=== PATIENT | female | born 1970 | race Caucasian/White ===

== ENCOUNTER 2020-05-13 21:41 | Emergency (ER) | payer BC, SELFPAY ==
[2020-05-13] VITALS (8 sets, daily range): BP systolic 104–160; BP diastolic 74–115; PULSE 74–87; RESP 13–26; TEMP 37; O2SAT 94–98
--- NOTE | 2020-05-13 21:57 | ED.GENADUL_ITS ---
Discharge Plan Disposition Patient Disposition: HOME Condition: Good Discharge Details Chief Complaint: GenMedical Clinical Impression: Migraine headache Primary Care Provider: None,None ED Provider: Alan Means Home Meds and New Rx's Prescriptions: Continued metoprolol tartrate 100 MG tablet 300 mg PO DAILY RF: 0 hydrochlorothiazide 50 MG tablet 50 mg PO DAILY RF: 0 lisinopril 20 MG tablet 20 mg PO DAILY RF: 0 amlodipine 2.5 MG tablet 2.5 mg PO DAILY RF: 0 ciprofloxacin-hydrocortisone [Cipro HC] 10 ML drops,suspension 10 ml .Route .DM PRNRF: 0 Discharge Instructions Instructions: Acute Headache (ED) Additional Instructions: At this time your headache seems to be associated with a migraine variant. With its complete resolution and your blood pressure normalizing feel that you can be discharged. If you notice any worsening of your symptoms, or any new symptoms such as vomiting, diarrhea, fever, chills, shortness of breath, chest pain, numbness, weakness, or fainting , please return immediately to the emergency department for reevaluation. Please follow up with your primary care provider as soon as possible for reassessment and reevaluation. As always, it was a pleasure participating in your medical care today. Medical Decision Making 41-year-old female with a past medical history of hypertension, as well as migraines presents today for 1 to 2 days of frontal headaches. She states that it feels notably similar to her chronic headaches which sometimes are independent of her blood pressure and sometimes associated with it. She describes the pain as a pounding pressure-like sensation in the front of her head radiating to the temporal region. She also has some radiation to the back of her head towards her neck. She denies any neck stiffness fever or chills. The patient denies any headache red flags of worst headache of life, thunderclap headache, neck pain, fever, chills, concerning family history of polycystic kidn ey disease, Marfan syndrome, Enzo-Danlos syndrome, abdominal aortic aneurysm, aortic dissection, or intracranial aneurysm. She did notice that her blood pressure was elevated the other day, but it is not much higher than normal. Patient does admit to an outpatient CAT scan 1 year ago which was unremarkable. No tumor or mass at that time. No other complaints. Headache is made worse with bright lights and loud noises. She has taken Benadryl, caffeine, ibuprofen, but none of this is helped her symptoms. Physical exam demonstrates no neurologic deficits, no clinical evidence of meningitis. Signs and symptoms appear inconsistent with aneurysm/ meningitis/bleed. no focal neurologic deficits to suggest intracranial abnormality. Will give a migraine cocktail, rehydrate monitor closely and reassess. 11 PM Patient has complete resolution of her headache after migraine cocktail. She feels well and requesting discharge. Repeat neurologic exam shows no neurologic deficits. No indication for imaging at this time. Blood pressure has normalized completely. Suspect that her headache was the cause of her pressure. Patient will be discharged home. Discussed red flags which to return. I have extensively reviewed the treatment plan and discharge instructions with the patient. I have addressed all patient concerns at this time. The patient was made aware of what symptoms to monitor for that would warrant a return to the emergency department. Discussed the plan with the patient, they demonstrate verbal understanding and agreement with our assessment and plan at this time. EKG 22: 03 Rate 75, intervals normal, sinus rhythm, no significant ST elevations or depressions, no T wave inversions. No evidence of STEMI or right heart strain. HPI General Date/Time Provider Initiated Documentation: 05/13/20 21:50 . HPI Narrative: 41-year-old female with a past medical history of hypertension, as well as migraines presents today for 1 to 2 days of frontal headaches. She states that it feels notably similar to her chronic headaches which sometimes ar e independent of her blood pressure and sometimes associated with it. She describes the pain as a pounding pressure-like sensation in the front of her head radiating to the temporal region. She also has some radiation to the back of her head towards her neck. She denies any neck stiffness fever or chills. The patient denies any headache red flags of worst headache of life, thunderclap headache, neck pain, fever, chills, concerning family history of polycystic kidney disease, Marfan syndrome, Enzo-Danlos syndrome, abdominal aortic aneurysm, aortic dissection, or intracranial aneurysm. She did notice that her blood pressure was elevated the other day, but it is not much higher than normal. Patient does admit to an outpatient CAT scan 1 year ago which was unremarkable. No tumor or mass at that time. No other complaints. Headache is made worse with bright lights and loud noises. She has taken Benadryl, caffeine, ibuprofen, but none of this is helped her symptoms. Related Data Home Medications Medication Instructions Recorded Confirmed amlodipine 2.5 mg PO DAILY 06/26/18 06/26/18 ciprofloxacin-hydrocortisone 10 ml .ROUTE .DM PRN btl 06/26/18 [Cipro HC] hydrochlorothiazide 50 mg PO DAILY 06/26/18 06/26/18 lisinopril 20 mg PO DAILY 06/26/18 06/26/18 metoprolol tartrate 300 mg PO DAILY 06/26/18 06/26/18 Previous Rx's Medication Instructions Recorded ciprofloxacin-hydrocortisone 10 ml .ROUTE .DM PRN btl 06/26/18 [Cipro HC] Allergies Allergy/AdvReac Type Severity Reaction Status Date / Time cephalexin monohydrate Allergy Severe Anaphylaxsi Unverified 05/13/20 21:52 [From Keflex] s Latex, Natural Rubber Allergy Skin Rash Unverified 05/13/20 21:52 Penicillins Allergy Nausea Unverified 05/13/20 21:52 meperidine HCl [From Demerol] AdvReac vomits Unverified 05/13/20 21:52 morphine AdvReac vomits Unverified 05/13/20 21:52 General Stated Complaint: GenMedical MAUDE: 3 Review of Systems All systems reviewed & are unremarkable except as noted in HPI and below PFSH Social History Smoking/Tobacco Use Status: Never Drug use: Never Do you feel safe at home: Yes Do you feel safe in your relationship?: Yes Exam Narrative Exam Narrative: 1.Const: Well-nourished, Well-developed, appearing stated age 2.Eyes: PERRL, no conjunctival injection, and symmetrical lids. 3.ENT: Atraumatic external nose and ears. Moist MM. Neck: Symmetric, trachea midline, No thyromegaly. Patient demonstrates good movement of cervical neck. There is no nuchal rigidity, no nuchal tenderness. Patient is able to flex the neck without any difficulty or significant pain. Negative Kernig's and Brudzinski sign. 4.CVS: +S1/S2, No murmurs or gallops. Peripheral pulses 2+ and equal in all extremities. Brisk capillary refill in all extremities. 5.RESP: Unlabored respiratory effort. Clear to auscultation bilaterally. No wheezes rales or rhonchi 6.GI: Soft, Nontender/Nondistended, No hepatosplenomegaly. No guarding or rebound. 7.MSK: Normocephalic/Atraumatic, Extremities w/o deformity or ttp No cyanosis or clubbing, Normal movement of all extremities 8.Skin: Warm, Dry. No rashes or lesions. 9.Neuro: business continuity planner II-XII grossly intact. Sensation grossly intact, no focal neurologic deficits. All 6 cardinal planes of vision are fully intact. No evidence of rotatory or vertical nystagmus. The patient demonstrated a normal pkehot-cyio-evnldv, good dexterity. There was no evidence of dysdiadochokinesia. Patient was able to ambulate without difficulty. There was no wide-based gait. Romberg testing was normal. Uvfq-qi-uxjo testing was normal. Sensation was intact bilaterally as well as muscle strength bilaterally for all extremities. Patient was able to verbalize butter cup with no slurring, or miss pronunciation. 10.Psych: (AAO) x3. Appropriate mood and affect Course Vital Signs Vital signs: Vital Signs Temperature 37.0 C 05/13/20 21:49 Pulse 86 05/13/20 21:49 Respiratory Rate 16 05/13/20 21:49 Blood Pressure 160/115 H 05/13/20 21:49 Pulse Oximetry 98 05/13/20 21:49 Temperature 37.0 C 05/13/20 21:49 Temperature Source Skin 05/13/20 21:49 Pulse 86 05/13/20 21:49 Respiratory Rate 16 05/13/20 21:49 Respiratory Effort Non-Labored 05/13/20 21:52 Blood Pressure 160/115 H 05/13/20 21:49 Blood Pressure Position Sitting 05/13/20 21:49 Pulse Oximetry 98 05/13/20 21:49 Oxygen Delivery Method Room Air 05/13/20 21:49 Oxygen Flow Rate 0 05/13/20 21:49 Pain Level 8 05/13/20 21:49
[2020-05-13] MEDS: diphenhydrAMINE 50 MG/ML VIAL 25 MG IVP (22:27)
[2020-05-13] MEDS: Acetaminophen 500 MG TAB 1000 MG PO (22:27)
[2020-05-13] MEDS: methylPREDNISolone SUCC 125 MG VIAL IVP (22:28)
[2020-05-13] MEDS: Ketorolac 30 MG/ML VIAL IVP (22:28)
[2020-05-13] MEDS: Normal Saline 1,000 ML 1000 ML IV (22:28)
[2020-05-13] MEDS: Prochlorperazine 10 MG/2 ML VIAL IVP (22:29)
== END 2020-05-13 23:10 | disposition home or self-care (01) ==
PROVIDERS: Emergency Provider Student in an Organized Health Care Education/Training Program; PCP Nurse Practitioner Family
DX: G43.809 Other migraine, not intractable, without status migrainosus (principal); I10 Essential (primary) hypertension
CPT/HCPCS: 36415; 96361; 96374; 96375; 99284; J0780; J1200; J1885; J2930

== ENCOUNTER 2020-12-01 11:36 | Emergency (ER) | payer BC, SELFPAY ==
[2020-12-01 11:40] VITALS: BP 128/78; PULSE 77; RESP 18; TEMP 36.8; O2SAT 96
--- NOTE | 2020-12-01 11:45 | W.ED.GENAD ---
Discharge Plan Disposition Patient Disposition: HOME Condition: Stable Discharge Details Clinical Impression: Cystitis Primary Care Provider: Ana María Peter ED Provider: Rex Whitlock Home Meds and New Rx's Prescriptions: New nitrofurantoin monohyd/m-cryst [Macrobid] 100 mg capsule 100 mg PO Q12H 5 Days Qty: 10 RF: 0 Continued lisinopril 20 MG tablet 30 mg PO DAILY RF: 0 amlodipine 2.5 MG tablet 20 mg PO DAILY RF: 0 clonidine 0.2 mg/24 hr patch weekly 0.2 mg transdermal 7XD RF: 0 chlorthalidone 25 mg tablet 25 mg PO DAILY RF: 0 Discharge Instructions Instructions: Urinary Tract Infection in Women (ED) Additional Instructions: IF you have fevers or severe back or abdominal pain return to the emergency department I placed you on our follow up list to see a primary care provider Medical Decision Making 50 yo female comes in with several days of burning with urination, no back pain, abdominal pain, fevers or vomit. 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 HAs been taking pyridium so urine here is orange, will order culture and start her on macrobid. She has no cva tenderness or abdominal tenderness and appears well systemically so doubt sepsis or pyelo Differential Diagnosis Differential Diagnosis: cystitis, uti HPI General Mode of arrival: ambulatory. Date/Time Provider Initiated Documentation: 12/01/20 11:37. Limitations to Documentation: no limitations. Information obtained by: patient. History of Present Illness 50 year old F presents to the emergency department with the chief complaint of burning with urination, described as moderate, Patient started experiencing this day(s) (3) and it has been constant. No relieving factors improve symptom(s), No exacerbating factors reported . Patient did receive the following treatments prior to arrival, none Related Data Home Medications Medication Instructions Recorded Confirmed amlodipine 20 mg PO DAILY 06/26/18 12/01/20 lisinopril 30 mg PO DAILY 06/26/18 12/01/20 chlorthalidone 25 mg PO DAILY 12/01/20 12/01/20 clonidine 0.2 mg TRANSDERMAL 7XD 12/01/20 12/01/20 nitrofurantoin monohyd/m-cryst 100 mg PO Q12H 5 Days #10 cap 01/02/21 [Macrobid] Previous Rx's Medication Instructions Recorded nitrofurantoin monohyd/m-cryst 100 mg PO Q12H 5 Days #10 cap 12/01/20 [Macrobid] Allergies Allergy/AdvReac Type Severity Reaction Status Date / Time cephalexin monohydrate Allergy Severe Anaphylaxsi Unverified 12/01/20 11:44 [From Keflex] s Latex, Natural Rubber Allergy Skin Rash Unverified 12/01/20 11:44 Penicillins Allergy Nausea Unverified 12/01/20 11:44 meperidine HCl [From Demerol] AdvReac vomits Unverified 12/01/20 11:44 morphine AdvReac vomits Unverified 12/01/20 11:44 General Stated Complaint: Urinary MAUDE: 3 Review of Systems All systems reviewed & are unremarkable except as noted in HPI and below Constitutional Constitutional: Denies chills, Denies fever(s) and Denies weakness Cardiovascular Cardiovascular: Denies chest pain and Denies dyspnea Respiratory Respiratory: Denies cough and Denies dyspnea Gastrointestinal Gastrointestinal: Denies abdominal pain, Denies nausea and Denies vomiting Neurologic Neurologic: Denies weakness [facility] Social History Smoking/Tobacco Use Status: Never Smoking risk assessment performed?: Yes Alcohol Intake: never Drug use: Never Substance use type: does not use Do you feel safe at home: Yes Do you feel safe in your relationship?: Yes Exam Const General: no acute distress Orientation: alert HENMT Head: normal to inspection Ears: external ears normal General nose exam: external nose normal Mouth: moist mucous membranes Eyes General: appearance normal, both eyes and all related structures Neck Neck: normal visual inspection Resp Effort & Inspection: normal respiratory effort and able to speak in complete sentences Cardio Rate: regular rate Skin General skin exam: no rashes or lesions noted Neuro General: patient alert and patient oriented x3 Extrem General: normal to inspection Psych Mental Status: mental status grossly normal Course Vital Signs Vital signs: Vital Signs Temperature 36.8 C 12/01/20 11:40 Pulse 77 12/01/20 11:40 Respiratory Rate 18 12/01/20 11:40 Blood Pressure 128/78 12/01/20 11:40 Pulse Oximetry 96 12/01/20 11:40 Temperature 36.8 C 12/01/20 11:40 Temperature Source Temporal Artery Scan 12/01/20 11:40 Pulse 77 12/01/20 11:40 Respiratory Rate 18 12/01/20 11:40 Blood Pressure 128/78 12/01/20 11:40 Blood Pressure Position Sitting 12/01/20 11:40 Pulse Oximetry 96 12/01/20 11:40 Oxygen Delivery Method Room Air 12/01/20 11:40 Oxygen Flow Rate 0 12/01/20 11:40 Pain Level 8 12/01/20 11:40
[2020-12-01 11:56] LABS: Bilirubin Negative (Negative); Blood Moderate (Negative); Clarity Cloudy (Clear); Glucose Negative (Negative); Ketones Negative (Negative); Leukocyte Esterase Small (Negative); Nitrite Positive (Negative); Specific Gravity >= 1.030 (1.005-1.025)
--- NOTE | 2020-12-01 12:04 | NUR.NOTE ---
referral to Care Management to establish pcp.Nursing Note:
[2020-12-01 12:08] LABS: Epithelial Cells Few HPF (Negative); WBC >50 HPF (0-5)
[2020-12-01 12:09] LABS: Bacteria Many HPF (Negative); C & S Indicated? C&S Done As Ordered; Crystals Negative HPF (Negative); Mucus Trace (Negative)
--- NOTE | 2020-12-04 16:29 | PDOC.ERCMPRO ---
- If Service Date Differs Date of service: 12/04/20 Time of Service: 16:29 Care Management Progress Note Kirti is seen in the ED on 12/01/2020 for cystitis. At the request of ED provider, CM coordinates a referral to the [facility] to assist Kirti in establishing care with a local PCP. Of note, the [facility] is not the on-call provider but patient has expressed her preference to establish with them.
== END 2020-12-01 12:07 | disposition home or self-care (01) ==
PROVIDERS: Emergency Provider Emergency Medicine; PCP Nurse Practitioner Family
DX: N30.00 Acute cystitis without hematuria (principal); B96.20 Unspecified Escherichia coli [E. coli] as the cause of diseases classified elsewhere
CPT/HCPCS: 87077; 99283; 81003; 81015; 87086; 87186

== ENCOUNTER 2020-12-08 20:11 | Emergency (ER) | payer BC, SELFPAY ==
--- NOTE | 2020-12-08 20:15 | RT.EKG_ITS ---
APPROVED REPORT Exam: Resting ECG Patient Location: E HR:104 bpm ECG Measurements Heart Rate 104 AXIS MD 186 P 40 QRSd 82 QRS 46 QT 346 T 47 QTc 461 Conclusion Sinus tachycardia...rate> 99 Nonspecific repol abnormality, diffuse leads...ST dep, T flat/neg, ant/lat/inf Likely Rate Related Normal [place]
[2020-12-08 20:16] VITALS: BP 178/100; PULSE 117; RESP 18; TEMP 36.8; O2SAT 97
--- NOTE | 2020-12-08 20:39 | ED.GENADUL_ITS ---
Discharge Plan Disposition Patient Disposition: HOME Condition: Improving Discharge Details Clinical Impression: Hypertension, Headache Primary Care Provider: Ana María Peter ED Provider: Viktoriya Nathan Home Meds and New Rx's Prescriptions: Continued lisinopril 20 MG tablet 30 mg PO DAILY RF: 0 amlodipine 2.5 MG tablet 20 mg PO DAILY RF: 0 No Action clonidine 0.2 mg/24 hr patch weekly 0.2 mg transdermal 7XD RF: 0 chlorthalidone 25 mg tablet 25 mg PO DAILY RF: 0 Discharge Instructions Instructions: Hypertension (ED), General Headache (ED) Additional Instructions: After receiving approximately 10 mg of lisinopril and 0.1 mg of clonidine here in the department his blood pressure and headache have improved. The work-up was within normal limit. Head CT shows no abnormality. I recommend that you restart the amlodipine and lisinopril, please speak with your primary care provider about restarting the clonidine and the diuretic. Follow up with primary care provider in 2-3 days. Return to ED sooner if any worsening or concerns. Increase oral fluids. Please take Tylenol or Ibuprofen with food every 4-6 hours as needed for pain and swelling. Referrals: Ana María Peter [Primary Care Provider] - Medical Decision Making 50-year-old female presents to the ED with chief complaint of high blood pressure, head neck pain, flushing and shaking. She states that she had arm surgery on her right axilla for a tumor removal on November 27 after her surgery she had some hypotension. Patient states that she was in the 80s systolic. She was instructed by her PCP to stop all her blood pressure medication. She normally takes 20 mg amlodipine, 0.2 mg of transdermal clonidine patches, 30 mg of lisinopril daily. Patient states that she woke up this morning with blood pressure two 4/122. She did have emesis x2 and some nausea. She is sensitive to light. She did take 20 mg of amlodipine today around 10:30 AM. She denies any chest pain or shortness of breath or abdominal pain. Surgical site is without erythema or swelling or drainage. 2131: Patient returns from CT, blood pressure has decreased somewhat to 159/85 after 0.1 mg of clonidine p.o. and 10 mg of lisinopril p.o. Patient is receiving normal saline infusion at 215-hour IV Tylenol 1 g ordered for headache. At this time CT is pending. Initial labs are largely within normal limits, potassium is somewhat low at 3.4, initial troponin is negative. Exam: CT Angiography Head With Contrast IMPRESSION: No large vessel stenosis or occlusion detected involving the major branches of the anterior or posterior intracranial circulation. Exam: CT Angiography Neck With Contrast IMPRESSION: No evidence of 50% or greater stenosis involving the cervical segments of the right or left internal carotid arteries by NASCET criteria. 2207: Patients blood pressure has improved to 139/84, will discuss home care and the resuming of medications. I will reccommend restarting her amlodipine and Lisinopril . Will suggest discussing clonidine with PCP early this week. HPI General Mode of arrival: ambulatory . Date/Time Provider Initiated Documentation: 12/08/20 20:15 . Limitations to Documentation: no limitations . Information obtained by: patient . HPI Narrative: 50-year-old female presents to the ED with chief complaint of high blood pressure, head neck pain, flushing and shaking. She states that she had arm surgery on her right axilla for a tumor removal on November 27 after her surgery she had some hypotension. Patient states that she was in the 80s systolic. She was instructed by her PCP to stop all her blood pressure medication. She normally takes 20 mg amlodipine, 0.2 mg of transdermal clonidine patches, 30 mg of lisinopril daily. Patient states that she woke up this morning with blood pressure two 4/122. She did have emesis x2 and some nausea. She is sensitive to light. She did take 20 mg of amlodipine today around 10:30 AM. She denies any chest pain or shortness of breath or abdominal pain. Surgical site is without erythema or swelling or drainage. Related Data Home Medications Medication Instructions Recorded Confirmed amlodipine 20 mg PO DAILY 06/26/18 12/08/20 lisinopril 30 mg PO DAILY 06/26/18 12/08/20 chlorthalidone 25 mg PO DAILY 12/01/20 12/08/20 clonidine 0.2 mg TRANSDERMAL 7XD 12/01/20 12/08/20 Allergies Allergy/AdvReac Type Severity Reaction Status Date / Time cephalexin monohydrate Allergy Severe Anaphylaxsi Unverified 12/08/20 20:22 [From Keflex] s Latex, Natural Rubber Allergy Skin Rash Unverified 12/08/20 20:22 Penicillins Allergy Nausea Unverified 12/08/20 20:22 meperidine HCl [From Demerol] AdvReac vomits Unverified 12/08/20 20:22 morphine AdvReac vomits Unverified 12/08/20 20:22 General Stated Complaint: Headache MAUDE: 2 Review of Systems Narrative: Constitutional: Negative for weight loss, alert and oriented, well groomed, normal body habitus, appears uncomfortable. HEENT: Denies trauma, nasal discharge, sore throat, trouble swallowing. Positive headache, blurry vision. Chest: Denies chest pain, palpitations, irregular rhythm, positive hypertension. Respiratory: Denies Shortness of breath, cough, hemoptysis. GI: Denies abdominal pain, diarrhea, constipation. Positive nausea vomiting. : Denies dysuria, hematuria, flank pain, rectal bleeding. Neuro: Denies dizziness, weakness, syncope, or facial numbness. Hematologic: Denies easy bruising, intolerance to heat or cold, hair loss. [facility] Social History Smoking/Tobacco Use Status: Never Smoking risk assessment performed?: Yes Alcohol Intake: never Drug use: Never Substance use type: does not use Do you feel safe at home: Yes Do you feel safe in your relationship?: Yes Exam Narrative Exam Narrative: Constitutional: Alert and oriented x3. Appears stated age. Normal body habitus. Appears anxious and uncomfortable. Head: Normocephalic, no trauma. Eyes: Pupils PERRLA, Red reflex noted, EOM's intact. Eyelids symmetrical without lesions, discharge, or swelling. ENT: Bilateral TM's WNL, External ear normal to inspection, no mastoid TTP, swelling, or erythema, Nasal turbinates WNL, no nasal discharge. Normal dentition, Posterior pharynx WNL, no exudate. Chest: Tachycardia, normal S1, S2, distal pulses intact. Resp: Lungs clear to auscultation bilaterally, no wheezes, rales, or rhonchi. Musculoskeletal: Normal gait, 5/5 strength to all four extremities. Skin: No suspicious rashes or lesions. Capillary refill less than 2 sec. Neurologic: Cranial nerves II-XII intact. Alert and oriented x 3. DTR's intact. Hematologic/Lymphatic: No ecchymosis, no lymphadenopathy. Course Vital Signs Vital signs: Vital Signs Temperature 36.8 C 12/08/20 20:16 Pulse 117 H 12/08/20 20:16 Respiratory Rate 18 12/08/20 20:16 Blood Pressure 178/100 H 12/08/20 20:16 Pulse Oximetry 97 12/08/20 20:16 Temperature 36.8 C 12/08/20 20:16 Temperature Source Skin 12/08/20 20:16 Pulse 117 H 12/08/20 20:16 Respiratory Rate 18 12/08/20 20:16 Respiratory Effort 12/08/20 20:25 Blood Pressure 178/100 H 12/08/20 20:16 Blood Pressure Position Sitting 12/08/20 20:16 Pulse Oximetry 97 12/08/20 20:16 Oxygen Delivery Method Room Air 12/08/20 20:16 Oxygen Flow Rate 0 12/08/20 20:16 Pain Level 9 12/08/20 20:16
--- NOTE | 2020-12-08 20:45 | DI.CT_ITS ---
EXAM: CT BRAIN NECK CTA CLINICAL HISTORY: HTN, Headache, neck pain vomiting. TECHNIQUE: Imaging Protocol: Axial CT angiography was performed with multi-slice acquisition and mu lti-planar and/or 3D reconstructions. CONTRAST MATERIAL: Intravenous: Omnipaque 350 Contrast volume:86 ml COMPARISON: No exams were available for comparison FINDINGS: CT Head W/O: Ventricles and Extra axial spaces: Normal in size and morphology for the patient's age. Hemorrhage: None. Cerebral parenchyma: Normal. Midline shift: None. Brainstem/Cerebellum: Normal. Calvarium: Normal. Visualized Paranasal sinuses/Mastoids: Clear. Soft Tissues: Unremarkable. CTA Brain W: Internal Carotid Arteries: Petrous: Normal. Cavernous: Normal. Cerebral: Normal. Middle Cerebral Arteries: Right: No aneurysm, occlusion or significant stenosis. Left: No aneurysm, occlusion or significant stenosis. Anterior Cerebral Arteries: Right: No aneurysm, occlusion or significant stenosis. Left: No aneurysm, occlusion or significant stenosis. Posterior cerebral Arteries: Right: No aneurysm, occlusion or significant stenosis. Left: No aneurysm, occlusion or significant stenosis. Vertebral Arteries: Right: No aneurysm, occlusion or significant stenosis. Left: No aneurysm, occlusion or significant stenosis. Basilar Artery: No aneurysm, occlusion or significant stenosis. CTA Neck W: Common Carotid: Right: No aneurysm, occlusion or significant stenosis. Left: No aneurysm, occlusion or significant stenosis. External Carotid: Right: No aneurysm, occlusion or significant stenosis. Left: No aneurysm, occlusion or significant stenosis. Internal Carotid: Right: No aneurysm, occlusion or significant stenosis. Left: No aneurysm, occlusion or significant stenosis. Vertebral Artery: Right: No aneurysm, occlusion or significant stenosis. Left: No aneurysm, occlusion or significant stenosis. Lung Apices: Normal. Bones: Degenerative changes are seen in the cervical spine. Soft Tissues: Normal. IMPRESSION: 1. Normal CTA examination of the [place]. 2. Unremarkable noncontrast CT Head. 3. Normal CTA examination of the neck. RADIATION DOSE DELIVERED: 1,097.64mGy.cm Total DLP DATA REPOSITORY: All CT scans at this facility are submitted to the National Radiology Data Registry (NRDR) Dose Index Registry (DIR) with the [employer] (ACR). RADIATION OPTIMIZATION: All CT scans at this facility use at least one of these dose optimization te chniques: automated exposure control; mA and/or kV adjustment per patient size (includes targeted exa ms where dose is matched to clinical indication); or iterative reconstruction.
[2020-12-08 20:57] LABS: Abs Immature Grans 0.03 10^3/uL (0.0-0.06); Absolute Basophil Count 0.08 10^3/uL (0.0-0.2); Absolute Eosinophil Count 0.38 10^3/uL (0.0-0.7); Absolute Lymphocyte Count 2.68 10^3/uL (1.2-3.4); Absolute Monocyte Count 0.63 10^3/uL (0.1-0.8); Basophils % 0.8; HCT 41.4 % (36.0-46.0); HGB 13.5 g/dL (11.2-15.7); Immature Grans % 0.3; Lymphocytes % 27.9; MCH 25.7 pg (27.0-33.0); MCHC 32.6 % (32.0-36.0); MCV 78.9 fL (80-95); MPV 9.5 fL (8.0-11.0); Monocytes % 6.6; Neutrophils % 60.4; Nucleated RBC 0 %; Platelet Count 313 10^3/uL (130-400); RBC 5.25 10^6/uL (3.93-5.22); RDW 13.6 % (11.7-14.6); RDW-SD 39.2 fL
[2020-12-08 21:01] VITALS: BP 166/71; PULSE 100; RESP 22; O2SAT 97
[2020-12-08] MEDS: Ondansetron 4 MG/2 ML VIAL IVP (21:02)
[2020-12-08] MEDS: Lisinopril 10 MG TAB PO (21:03)
[2020-12-08] MEDS: cloNIDine 0.1 MG TAB PO (21:03)
[2020-12-08 21:11] LABS: ALT 43 U/L (14-59); AST 33 U/L (15-37); Albumin 3.5 g/dL (3.4-5.0); Alkaline Phosphatase 109 U/L (46-116); Anion Gap 9.4 mmol/L (3-11); BUN 13 mg/dL (7-18); Bilirubin, Total 0.4 mg/dL (0.2-1.0); CO2 24.6 mmol/L (21.0-32.0); CREATININE 0.79 mg/dL (0.55-1.02); Calcium 8.8 mg/dL (8.5-10.1); Chloride 104 mmol/L (98-107); Glucose 105 mg/dL (74-106); Magnesium 1.8 mg/dL (1.8-2.4); Potassium 3.4 mmol/L (3.5-5.1); Sodium 138 mmol/L (136-145); Total Protein 7.6 g/dL (6.4-8.2); Troponin I < 0.05 ng/mL (<0.06)
[2020-12-08] MEDS: Omnipaque 350 MG/ML 100 ML BTL IJ (21:16)
--- NOTE | 2020-12-08 21:53 | DI.VRAD_ITS ---
PROCEDURE INFORMATION: Exam: CT Angiography Head With Contrast Exam date and time: 12/08/2020 8:53 PM Age: 50 years old Clinical indication: Headache and other: Neck pain TECHNIQUE: Imaging protocol: Computed tomography angiography of the head with intravenous contrast. 3D rendering (Not supervised by radiologist): MIP and/or 3D reconstructed images were created by the technologist. COMPARISON: No relevant prior studies available. FINDINGS: ANTERIOR CIRCULATION: Right internal carotid artery: Unremarkable. Intracranial segment is patent with no significant stenosis. No aneurysm. Right middle cerebral artery: Unremarkable. No occlusion or significant stenosis. No aneurysm. Right anterior cerebral artery: Unremarkable. No occlusion or significant stenosis. No aneurysm. Left internal carotid artery: Unremarkable. Intracranial segment is patent with no significant stenosis. No aneurysm. Left middle cerebral artery: Unremarkable. No occlusion or significant stenosis. No aneurysm. Left anterior cerebral artery: Unremarkable. No occlusion or significant stenosis. No aneurysm. POSTERIOR CIRCULATION: Right vertebral artery: Unremarkable. No occlusion or significant stenosis. No aneurysm. Left vertebral artery: Unremarkable. No occlusion or significant stenosis. No aneurysm. Basilar artery: Unremarkable. No occlusion or significant stenosis. No aneurysm. Right posterior cerebral artery: Unremarkable. No occlusion or significant stenosis. No aneurysm. Left posterior cerebral artery: Unremarkable. No occlusion or significant stenosis. No aneurysm. Brain: No definite mass, mass effect, or midline shift. Borderline low-lying cerebellar tonsillar tissue without tonsillar peg or associated hydrocephalus. Cerebral ventricles: No midline shift or hydrocephalus. Bones/joints: Unremarkable. No acute fracture. Soft tissues: Unremarkable. IMPRESSION: No large vessel stenosis or occlusion detected involving the major branches of the anterior or posterior intracranial circulation. PROCEDURE INFORMATION: Exam: CT Angiography Neck With Contrast Exam date and time: 12/08/2020 8:53 PM Age: 50 years old Clinical indication: Headache and other: Neck pain TECHNIQUE: Imaging protocol: Computed tomography angiography of the neck with intravenous contrast. 3D rendering (Not supervised by radiologist): MIP and/or 3D reconstructed images were created by the technologist. COMPARISON: No relevant prior studies available. FINDINGS: Right common carotid artery: No stenosis. No dissection or occlusion. Right internal carotid artery: No stenosis of the extracranial segment. No dissection or occlusion. Right external carotid artery: No occlusion or stenosis of the origin. Right vertebral artery: No stenosis. No dissection or occlusion. Left common carotid artery: No stenosis. No dissection or occlusion. Left internal carotid artery: No stenosis of the extracranial segment. No dissection or occlusion. Left external carotid artery: No occlusion or stenosis of the origin. Left vertebral artery: No stenosis. No dissection or occlusion. Bones/joints: No acute fracture. Soft tissues: Normal. No significant soft tissue swelling. IMPRESSION: No evidence of 50% or greater stenosis involving the cervical segments of the right or left internal carotid arteries by NASCET criteria. REFERENCES: NASCET CRITERIA. The degree of internal carotid artery stenosis is based on NASCET criteria. Normal is no stenosis. Mild is less than 50% stenosis. Moderate is 50-69% stenosis. Severe is 70% to 99% stenosis. Total occlusion is no detectable patent lumen. Dictated and Authenticated by: Cong Abreu MD. Ordering:MAEGAN Sadler MD
[2020-12-08 22:31] VITALS: BP 139/84; PULSE 84; RESP 16; O2SAT 98
[2020-12-08 22:46] VITALS: TEMP 36.4
== END 2020-12-08 22:35 | disposition home or self-care (01) ==
PROVIDERS: Emergency Provider Registered Nurse Emergency; PCP Nurse Practitioner Family
DX: I10 Essential (primary) hypertension (principal); R51.9 Headache, unspecified; E87.6 Hypokalemia
CPT/HCPCS: 36415; 70496; 70498; 80053; 93005; 96374; 99285; 83735; 84484; 85025; 93010; J2405; J3490

== ENCOUNTER 2021-05-05 14:42 | Emergency (ER) | payer BC, SELFPAY ==
[2021-05-05] VITALS (34 sets, daily range): BP systolic 114–171; BP diastolic 52–101; PULSE 65–105; RESP 14–24; TEMP 36.8; O2SAT 90–100
--- NOTE | 2021-05-05 14:45 | RT.EKG_ITS ---
APPROVED REPORT Exam: Resting ECG Reason for Exam: dizziness Patient Location: E HR:93 bpm ECG Measurements Heart Rate 93 AXIS MT 151 P 52 QRSd 80 QRS 60 QT 367 T 13 QTc 456 Conclusion Sinus rhythm...normal P axis, V-rate 60- 99. No STEMI. I have reviewed and interpreted ECG and agree with software generated interpretation.
--- NOTE | 2021-05-05 14:51 | ED.GENADUL_ITS ---
Discharge Plan Disposition Patient Disposition: HOME Condition: Good Discharge Details Clinical Impression: Headache Primary Care Provider: Jay Tracy ED Provider: Sarahy Munoz Home Meds and New Rx's Prescriptions: New prochlorperazine maleate [Compazine] 10 mg tablet 10 mg PO Q6H PRNQty: 10 RF: 0 No Action lisinopril 20 MG tablet 30 mg PO HS RF: 0 amlodipine 2.5 MG tablet 20 mg PO HS RF: 0 Discharge Instructions Instructions: General Headache (ED) Additional Instructions: Take Tylenol 650 to 1 g every 4-6 hours, do not exceed 3 g of Tylenol in a day You may take ibuprofen occasionally, however you are on a blood pressure medication that should not be combined with regular ibuprofen so do not take more than 400 mg once daily for longer than 3 to 5 days Compazine can help with headaches, you may take this start to have a recurrent headache Follow-up with the neurologist listed and return earlier should you have new or worsening complaints Referrals: Jaylyn Freeman MD [ [facility] STAFF PHYSICIAN] - Discharge Data Discharge Date/Time-TO BE ENTERED AT DEPARTURE: 05/05/21 18:11 Medical Decision Making <NINOSKA Warner - Last Filed: 05/05/21 16:21> Patient is a pleasant 50-year-old female presenting today with chief complaint of headache, dizziness and right arm numbness. She reports that she has chronic headache and headache began several days ago. However, began having this dizziness that she further goes on to describe as lightheadedness and off balance a few hours ago. She denies any shortness of breath or chest pain. No visual changes. She does endorse some photophobia however. Denies any nausea or vomiting. No neck pain. No rash. No known trauma. No recent travel. No prolonged periods of being sedentary. Patient not on any hormonal therapies. Patient is on antihypertensive medication which she takes at night, but yesterday. Patient has had similar symptoms historically and was last seen for this on December 08, 2020. On exam, patient appears uncomfortable. She does exhibit some photophobia. Is living on her daughter to help with ambulation. She is able to sit up unassisted. Neurologic exam otherwise is intact with no. Lungs are clear, patient is not tachycardic or hypoxic. Normal cardiac exam. No lower extremity swelling or calf tenderness. Differential at this time includes migraine, complex migraine, CVA, electrolyte abnormality. Patient not having any chest pain or shortness of breath. Vital signs are within normal limits. She is PERC negative. Will give patient Benadryl and Compazine for headache. We will hold off on any Toradol until imaging is returned. Plan for CTA of head and neck. Discussed this plan with the patient who is in agreement. Labs reviewed with no signficant abnormality. At the end of my shift, care transitioned to aSrahy Munoz PA-C, with CT results pending. <NINOSKA Saleh - Last Filed: 05/05/21 20:54> Patient accepted in signout from [facility], patient still with headache, CTA head and neck negative for acute abnormality per Dr. Davidson, radiology Patient given Toradol and Tylenol and placed on 1 L nasal cannula, approximately 1 hour later, she is feeling significantly improved, she is ambulatory with steady gait with any neurological findings She is referred to Dr. Freeman, neurology and she will follow-up She is discharged home in stable condition with stable vitals, she is given the specialist return with new or worsening complaints All questions answered to the best my ability Medical Records Medical records reviewed: Yes I reviewed the patient's medical records. HPI <NINOSKA Warner - Last Filed: 05/05/21 16:21> General Mode of arrival: ambulatory . Date/Time Provider Initiated Documentation: 05/05/21 14:51 . Limitations to Documentation: no limitations . Information obtained by: patient, family (accompanied by daughter and mother) and RN notes reviewed . History of Present Illness 50 year old F presents to the emergency department with the chief complaint of dizziness, headache, right arm numb/tingling, described as severe, with intensity rated at 8. Quality is described as aching, and is localized to the head. Patient reports no radiation. Patient started experiencing this day(s) and it has been constant. No relieving factors improve symptom(s), No exacerbating factors reported . Patient notes denies confusion, chest pain, diaphoresis, fever/chills, loss of appetite, nausea/vomiting, rash, shortness of breath and weakness. Patient did receive the following treatments prior to arrival, other (tylenol) Related Data Home Medications Medication Instructions Recorded Confirmed amlodipine 20 mg PO HS 06/26/18 05/05/21 lisinopril 30 mg PO HS 06/26/18 05/05/21 prochlorperazine maleate 10 mg PO Q6H PRN #10 tab 05/05/21 [Compazine] Previous Rx's Medication Instructions Recorded prochlorperazine maleate 10 mg PO Q6H PRN #10 tab 05/05/21 [Compazine] Allergies Allergy/AdvReac Type Severity Reaction Status Date / Time cephalexin monohydrate Allergy Severe Anaphylaxsi Unverified 05/05/21 14:54 [From Keflex] s Latex, Natural Rubber Allergy Skin Rash Unverified 05/05/21 14:54 Penicillins Allergy Nausea Unverified 05/05/21 14:54 meperidine HCl [From Demerol] AdvReac vomits Unverified 05/05/21 14:54 morphine AdvReac vomits Unverified 05/05/21 14:54 General MAUDE: 2 Review of Systems <NINOSKA Warner - Last Filed: 05/05/21 16:21> Constitutional Constitutional: Reports as per HPI, Denies chills, Reports fatigue, Denies fever(s), Denies frequent falls, Reports headache(s), Denies snoring and Denies weakness Eyes Eyes: Reports as per HPI, Denies blurry vision, Denies change in vision and Reports photophobia ENT Ears, Nose, Mouth, and Throat: Denies vertigo, Reports headache(s) and Denies neck pain Cardiovascular Cardiovascular: Reports as per HPI, Denies chest pain, Reports lightheadedness, Denies radiating jaw, neck or arm pain, Denies dyspnea and Denies dyspnea on exertion Respiratory Respiratory: Reports as per HPI, Denies chest congestion, Denies cough, Denies dyspnea, Denies dyspnea on exertion, Denies snoring, Denies stridor and Denies wheezing Gastrointestinal Gastrointestinal: Reports as per HPI, Denies abdominal pain, Denies change in bowel habits, Denies nausea and Denies vomiting Musculoskeletal Musculoskeletal: Reports as per HPI, Denies back pain, Denies myalgias, Denies muscle cramps, Denies neck pain and Reports numbness Integumentary/Breasts Skin/Breast: Reports as per HPI and Denies rash Neurologic Neurologic: Reports as per HPI, Denies abnormal movements, Denies abnormal speech, Denies behavioral changes, Denies confusion, Denies vertigo, Denies frequent falls, Reports headache(s), Denies localized weakness, Reports numbness, Denies sensory deficit and Denies weakness Psychiatric Psychiatric: Denies behavioral changes and Denies confusion Endocrine Endocrine: Reports fatigue Allergic/Immunologic Allergic/Immunologic: Denies wheezing PFSH <NINOSKA Warner - Last Filed: 05/05/21 16:21> Family History (Updated 04/08/21 @ 09:49 by Ashia Vaca) Daughter No problems noted. Daughter No problems noted. Maternal Grandfather , 70's Stroke Hyperlipidemia Paternal Grandfather , 70's Cancer Heart disease Hyperlipidemia Stroke Maternal Grandmother , 40's Breast cancer Paternal Grandmother , 70's Cancer liver Cancer Hypertension Stroke Social History Smoking/Tobacco Use Status: Never Second Hand Exposure: No Smoking risk assessment performed?: Yes Alcohol Intake: current Alcohol type: wine Drug use: Never Substance use type: does not use Caregiver/Support person: No Household members: children Housing: apartment Pets and animals: Yes Pets and animals: dog(s) and fish Sexually active: Yes Do you think of yourself as: straight/heterosexual Current gender identity: female How often do you talk on the phone with friends or family?: three or more times per week How often do you get together with friends or relatives?: three or more times per week Panel score (0-1 are the most socially isolated patients): 1 Seatbelt use: always Helmet use: Yes Helmet use: always Drive intox or ride w/intox gas truck driver: No Do you feel safe at home: Yes Do you feel safe in your relationship?: Yes Exam <NINOSKA Warner - Last Filed: 05/05/21 16:21> Const General: cooperative, healthy appearing, uncomfortable, no acute distress, well developed and well groomed Nutritional Appearance: average body habitus and well nourished Orientation: alert, awake and oriented x3 HENMT Head: normal to inspection, no palpable skull fracture, normocephalic and atraumatic Ears: hearing grossly normal bilaterally, external ears normal and TM's normal bilaterally General nose exam: external nose normal Mouth: oral mucosae normal and moist mucous membranes Throat: posterior oropharynx normal Eyes General: appearance normal, both eyes and all related structures Alignment and Position: alignment normal Periorbital: periorbital findings normal Eyelids: eyelids normal Sclera: sclerae normal Cornea: corneas normal Pupils: PERRL EOM: EOM intact bilaterally Neck Neck: normal visual inspection, full ROM, no lymphadenopathy and no meningeal signs Resp Effort & Inspection: normal respiratory effort, able to speak in complete sentences and no respiratory distress Auscultation: clear to auscultation bilaterally, no rales, no rhonchi and no wheezes Cardio Rate: regular rate Rhythm: regular rhythm Heart Sounds: S1 normal and S2 normal GI Inspection: normal to inspection and non-distended Palpation: soft, no hepatosplenomegaly, not firm, no guarding, not rigid and nontender Percussion: normal to percussion Auscultation: normal bowel sounds Back/Spine/Pelvis Cervical Spine: normal cervical lordosis and cervical ROM normal Skin General skin exam: no rashes or lesions noted Neuro General: patient alert, patient awake and patient oriented x3 Cranial Nerves: CN's II-XI intact bilaterally Cognition: normal cognition Speech: speech normal Gait: normal gait Motor: muscle tone normal throughout, strength 5/5 throughout, no pronator drift, no movement abnormalities noted and no fasciculations Sensory Exam: no sensory deficits noted Coordination: [id number] test normal and [id number] test normal Extrem General: normal to inspection, capillary refill normal, no pedal edema and no calf tenderness Psych Appearance: grossly normal and well kempt Mental Status: mental status grossly normal Speech and Movement: speech and movement normal Sign Out <NINOSKA Warner - Last Filed: 05/05/21 16:21> Sign Out Data: Sign Out Comment: Patient has [place], dizziness, right arm numbness. Labs reassuring. CT pending. Orthostatic pending. She has received compazine and benadryl. Took APAP prior to arrival. Last updated by Kim Burns PA at 05/05/21 16:05
[2021-05-05 15:17] LABS: Abs Immature Grans 0.01 10^3/uL (0.0-0.06); Absolute Basophil Count 0.05 10^3/uL (0.0-0.2); Absolute Eosinophil Count 0.07 10^3/uL (0.0-0.7); Absolute Lymphocyte Count 1.81 10^3/uL (1.2-3.4); Absolute Monocyte Count 0.38 10^3/uL (0.1-0.8); Absolute Neutrophil Count 5.57 10^3/uL (1.2-6.7); Basophils % 0.6; Eosinophils % 0.9; HGB 13.4 g/dL (11.2-15.7); Immature Grans % 0.1; Lymphocytes % 22.9; MCH 25.8 pg (27.0-33.0); MCHC 32.7 % (32.0-36.0); MPV 9.7 fL (8.0-11.0); Monocytes % 4.8; Neutrophils % 70.7; Nucleated RBC 0 %; Platelet Count 300 10^3/uL (130-400); RBC 5.19 10^6/uL (3.93-5.22); RDW 13.2 % (11.7-14.6); RDW-SD 37.3 fL; WBC 7.89 10^3/uL (4.4-10.8)
[2021-05-05] MEDS: diphenhydrAMINE 50 MG/ML VIAL 25 MG IVP (15:34)
[2021-05-05] MEDS: Prochlorperazine 10 MG/2 ML VIAL IVP (15:34)
[2021-05-05] MEDS: Normal Saline Flush 10 ML SYR IVP (15:34)
[2021-05-05] MEDS: Normal Saline 1,000 ML 1000 ML IV (15:35)
[2021-05-05] MEDS: Normal Saline 50 ML 200 ML (15:37)
[2021-05-05 15:44] LABS: ALT 28 U/L (14-59); AST 23 U/L (15-37); Albumin 3.8 g/dL (3.4-5.0); Alkaline Phosphatase 92 U/L (46-116); Anion Gap 10.7 mmol/L (3-11); BUN 17 mg/dL (7-18); Bilirubin, Total 0.7 mg/dL (0.2-1.0); CO2 23.3 mmol/L (21.0-32.0); CREATININE 0.8 mg/dL (0.55-1.02); Chloride 105 mmol/L (98-107); Glucose 110 mg/dL (74-106); Magnesium 1.9 mg/dL (1.8-2.4); Potassium 3.5 mmol/L (3.5-5.1); Sodium 139 mmol/L (136-145); Total Protein 7.7 g/dL (6.4-8.2); Troponin I < 0.05 ng/mL (<0.06)
--- NOTE | 2021-05-05 15:45 | DI.CT_ITS ---
Exam(s) CT BRAIN NECK CTA EXAM: CT BRAIN NECK CTA CLINICAL HISTORY: dizziness, right sided arm numbness. TECHNIQUE: Imaging Protocol: Axial CT angiography was performed with multi-slice acquisition and mu lti-planar and/or 3D reconstructions. CONTRAST MATERIAL: Intravenous: Omnipaque 350 Contrast volume:structured data in ml COMPARISON: CT CT BRAIN NECK CTA from 12/08/2020 FINDINGS: CT angiography of the cervical cranial region was performed according to the usual protocol with intr avenous infusion of 85 cc of Omnipaque 350.. Initial noncontrast scanning of the head is unremarkable. Visualized lung apices are clear. Visualized portions of thoracic aorta and pulmonary arterial circul ation are unremarkable. There is no evidence of a cervical mass or adenopathy. The tracheal laryngeal structures appear intact. The common, internal, and external carotid arteries are within normal limits in the cervical region w ith no evidence of aneurysm, stenosis, or dissection. The vertebral arteries are unremarkable in appearance in the cervical region with no evidence of aneu rysm, stenosis, or dissection. Intracranial portions of the internal carotid arteries appear normal with no evidence of aneurysm, st enosis, or dissection. Intracranial vertebral arteries and basilar artery appear normal with no evidence of aneurysm, stenos is or dissection. No aneurysm identified in the region of the [id number]. The anterior, middle, and posterior cer ebral arteries and major branches appear intact with no evidence of aneurysm, stenosis, or dissection . No enhancing brain lesion identified. IMPRESSION: Negative CT angiography of the cervical cranial region. RADIATION DOSE DELIVERED: 1,843.3mGy.cmTotal DLP 1,843.3mGy.cm Total DLP DATA REPOSITORY: All CT scans at this facility are submitted to the National Radiology Data Registry (NRDR) Dose Index Registry (DIR) with the [employer] (ACR). RADIATION OPTIMIZATION: All CT scans at this facility use at least one of these dose optimization te chniques: automated exposure control; mA and/or kV adjustment per patient size (includes targeted exa ms where dose is matched to clinical indication); or iterative reconstruction.
[2021-05-05] MEDS: Omnipaque 350 MG/ML 100 ML BTL IJ (15:53)
[2021-05-05 15:54] LABS: PTT Activated 24.1 sec (21.0-27.5); Prothrombin Time 10.4 sec (9.3-11.0)
[2021-05-05] MEDS: Normal Saline - Diluent 50 ML VIAL IV (15:54)
[2021-05-05] MEDS: ACETAMINOPHEN 1,000 MG/100 ML BTL 400 MG IVPB (16:30)
[2021-05-05] MEDS: Ketorolac 15 MG/ML VIAL IVP (16:38)
[2021-05-05] MEDS: Dexamethasone 10 MG/ML VIAL IVP (16:38)
--- NOTE | 2021-05-05 18:19 | NUR.NOTE ---
Referral faxed to Dr Heart Neurology to f/u 1-2 wks for headaches.Nursing Note:
== END 2021-05-05 18:11 | disposition home or self-care (01) ==
PROVIDERS: Physician Assistant; Emergency Provider Physician Assistant; PCP Nurse Practitioner Family
DX: R42 Dizziness and giddiness (principal); R51.9 Headache, unspecified; R20.0 Anesthesia of skin
CPT/HCPCS: 36415; 70496; 70498; 80053; 93005; 96361; 96374; 96375; 99285; 83735; 84443; 84484; 85025; 85610; 85730; 93010; J0131; J0780; J1100; J1200; J1885; J3490

== ENCOUNTER 2021-06-25 15:12 | Outpatient (REF) | payer BC, SELFPAY ==
[2021-06-25 10:14] LABS: Calculated LDL 113 mg/dL (<100); Cholesterol 193 mg/dL (<200); HDL Cholesterol 54 mg/dL (40-60); Triglyceride 131 mg/dL (<150)
[2021-06-25 10:16] LABS: Hemoglobin A1C 5.5 % (<5.7)
== END 2021-06-25 15:13 | disposition home or self-care (01) ==
LOC: LBN 15:12
PROVIDERS: PCP Nurse Practitioner Family; Visit Provider Nurse Practitioner Family
DX: Z13.220 Encounter for screening for lipoid disorders (principal); Z13.1 Encounter for screening for diabetes mellitus
CPT/HCPCS: 80061; 83036

== ENCOUNTER 2021-08-03 07:39 | Emergency (ER) | payer SELFPAY ==
[2021-08-03 07:44] VITALS: BP 182/96; PULSE 74; RESP 16; TEMP 36.4; O2SAT 96
--- NOTE | 2021-08-03 07:45 | DI.RAD_ITS ---
Exam(s) XR ANKLE RT COMPLETE EXAM: XR ANKLE RT COMPLETE CLINICAL HISTORY: pain s/p fall. TECHNIQUE: 2D digital imaging was performed. COMPARISON: CR XR CHEST 2V [id number] from 10/17/2020 FINDINGS: BONES: No acute fracture is present. No bony destructive lesion is seen. Small plantar spur. JOINTS: The ankle mortise is normally aligned. SOFT TISSUE: Normal. IMPRESSION: Unremarkable radiographs of the right ankle. DATA REPOSITORY: RADIATION DOSE DELIVERED:
--- OUTSIDE RECORDS SUMMARY | 2021-08-03 07:47 | XMS_ITS ---
:1970 Author Organization [facility], Address [address]. 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 uncertain behavior of right ovary Problem Intramural D25.1 Active 90809841 leiomyoma of uterus Problem Unspecified N83.20 Active 28436330 ovarian cysts Problem Unspecified N83.202 Active 20156037 [id number] ovarian cyst, left side ALLERGIES Substance Reaction Event Type Date Status Keflex hives, throat swelling Drug Allergy Jul, Activ e Onions Hives, facial swelling Drug Allergy Jul, Activ e Demerol N/V Drug Allergy Jul, Active Dilaudid vomiting Drug Allergy Jul, Active LATEX Hives, swelling in throat Drug Allergy Jul, Ac tive PCN as a child Drug Allergy Jul, Active NUTS Hives Drug Allergy Jul, Active Amoxicillin as a child Drug Allergy Jul, Active Morphine N/V Drug Allergy Jul, Active ENCOUNTERS Encounter Location Date Diagnosis [address] Oct, [facility] [address] [place], [place] [id number] [address] Oct, [facility] [address] [place], [place] [id number] [facility] [address] [place] [address] Rd. March, [facility], [address] [place] [id number] Jan, [facility], [address] [place] [id number] Jul, Neoplasm of [facility], [place] [address] [address] behavio r of right ovary [place], [place] D39.11 ; Intramu ral [id number] leiomyoma of modoc rachael D25.1 ; Other disorder of circulatory syst em I99.8 ; Other specified urinary incontinence N39 .498 and Unspecified ovar cheri cyst, left side N83.[address] Jan, Neoplasm of [facility], [address] behavio r of right ovary [place], [place] D[address] ; Intramu ral [id number] leiomyoma of modoc rachael D25.1 ; Other disorder of circulatory syst em I99.8 ; Other specified urinary incontinence N39 .498 ; Unspecified ovar cheri cyst, left side N83.20 2 and Encounter for sc reening for malignant ne oplasm of cervix Z12.[address] 04 Oct, 2018 [facility], [address] [place] [id number] Oct, [facility], [address] [place] [id number] Sep, Neoplasm of [facility], [address] [place] [address] behavio r of right ovary [place], [place] D39.11 ; Intramu ral [id number] leiomyoma of modoc rachael D25.1 ; Other disorder of circulatory syst em I99.8 ; Other specified urinary incontinence N39 .498 and Unspecified ovar cheri cyst, left side N83.[address] Jun, [facility], [address] [place] [id number] Feb, Neoplasm of [facility], [place] [address] [address] behavio r of right ovary [place], [place] D39.11 ; Intramu ral [id number] leiomyoma of modoc rachael D25.1 ; Other disorder of circulatory syst em I99.8 ; Other specified urinary incontinence N39 .498 and Unspecified ovar cheri cyst, left side N83.20 2 [facility] [address] [place] [address] Rd. Jan, [facility], [address] [place] [id number] Jul, [facility], [address] [place] [address] behavio r of right ovary [place], [place] D39.11 ; Intramu ral [id number] leiomyoma of modoc rachael D25.1 ; Other disorder of circulatory syst em I99.8 ; Other specified urinary incontinence N39 .498 and Unspecified ovar cheri cyst, left side N83.[address] Apr, Neoplasm of [facility], [address] [place] [address] behavio r of right ovary [place], [place] D39.11 ; Intramu ral [id number] leiomyoma of modoc rachael D25.1 ; Other disorder of circulatory syst em I99.8 ; Other specified urinary incontinence N39 .498 and Unspecified ovar cheri cyst, left side N83.[address] Apr, [facility], [address] [place] [id number] Feb, [facility], [address] [place] [id number] Jan, Neoplasm of [facility], [address] [place] [address] behavio r of right ovary [place], [place] D39.11 ; Intramu ral [id number] leiomyoma of modoc rachael D25.1 ; Other disorder of circulatory syst em I99.8 ; Other specified urinary incontinence N39 .498 and Unspecified ovar cheri cyst, left side N83.[address] Jan, [facility], [address] [place] [id number] Dec, [facility], [address] [place], [place] [id number] [address] Dec, [facility], [address] [place] [id number] Nov, [facility], [address] [place] [id number] Oct, Functional ur inary [facility], [address] [place] [address] inconti nence R39.81 ; [place], [place] Moderate cervica l [id number] dysplasia N87.1 and Dysuria R30.[address] Oct, [facility], [address] [place] [id number] Oct, Neoplasm of [facility], [address] [place] [address] behavio r of right ovary [place], [place] D39.11 ; Intramu ral [id number] leiomyoma of modoc rachael D25.1 ; Other disorder of circulatory syst em I99.8 ; Other specified urinary incontinence N39 .498 and Unspecified ovar cheri cyst, left side N83.[address] 16 Jul, 2016 Neoplasm of [facility], [address] [place] [address] behavio r of right ovary [place], [place] D39.11 ; Unspeci fied [id number] ovarian cysts N8 3.20 ; Intramural leiom yoma of uterus D25.1 ; O ther disorder of circ ulatory system I99.8 ; E ssential (primary) hypert ension I10 ; Zoster without complications B0 2.9 and Dysuria R30.[address] Apr, Neoplasm of [facility], [address] [place] [address] behavio r of right ovary [place], [place] D39.11 ; Unspeci fied [id number] ovarian cysts N8 3.20 ; Intramural leiom yoma of uterus D25.1 ; O ther disorder of circ ulatory system I99.8 and Essential (primary) hypert ension I10 [address] 17 Apr, 2016 [facility], [address] [place] [id number] 14 Apr, 2016 [facility], [address] [place] [id number] [facility] [address] [place] [address] Rd. 24 Jan, 2016 [facility], [address] [place] [id number] 24 Jan, 2016 [facility], [address] [id number] [facility] [address] [place] [address] Rd. 18 Jan, 2016 Neoplasm of [facility], [address] behavio r of right ovary [place], [place] D39.[address] ; Unspeci fied [id number] ovarian cysts N8 3.20 ; Intramural leiom yoma of uterus D25.1 and Other disorder of circ ulatory system I99.[address] Oct, [facility], [id number] Oct, Neoplasm of [facility], [address] behavio r of right ovary [place], [place] D[address] ; Unspeci fied [id number] ovarian cysts N8 3.20 ; Intramural leiom yoma of uterus D25.1 and Other disorder of circ ulatory system I99.[address] Oct, [facility], [address] [id number] IMMUNIZATIONS No Known Immunizations SOCIAL HISTORY Qualifiers Date Never Smoker REASON FOR REFERRAL FUNCTIONAL STATUS PLAN OF CARE Activity Details Follow Up 6 Months Reason: VITAL SIGNS Height 62 in 2019-08-16 Height 62 in 2019-02-08 Height 62 in 2018-10-05 Height 62 in 2018-03-08 Height 62 in 2017-08-28 Height 62 in 2017-05-26 Height 62 in 2017-02-13 Height 62 in 2016-11-21 Height 62 in 2016-11-14 Height 62 in 2016-08-15 Height 62 in 2016-05-16 Height 62 in 2016-02-15 Height 62 in 2015-11-16 Weight 156 lbs 2019-08-16 Weight 159 lbs 2019-02-08 Weight 161 lbs 2018-10-05 Weight 163 lbs 2018-03-08 Weight 166 lbs 2017-08-28 Weight 165 lbs 2017-05-26 Weight 165 lbs 2017-02-13 Weight 161 lbs 2016-11-21 Weight 162 lbs 2016-11-14 Weight 160 lbs 2016-08-15 Weight 161 lbs 2016-05-16 Weight 156 lbs 2016-02-15 Weight 156 lbs 2015-11-16 BMI 28.53 kg/m2 2019-08-16 BMI 29.08 kg/m2 2019-02-08 BMI 29.44 kg/m2 2018-10-05 BMI 29.81 kg/m2 2018-03-08 BMI 30.36 kg/m2 2017-08-28 BMI 30.18 kg/m2 2017-05-26 BMI 30.18 kg/m2 2017-02-13 BMI 29.44 kg/m2 2016-11-21 BMI 29.63 kg/m2 2016-11-14 BMI 29.26 kg/m2 2016-08-15 BMI 29.44 kg/m2 2016-05-16 BMI 28.53 kg/m2 2016-02-15 BMI 28.53 kg/m2 2015-11-16 Heart Rate 76 /min 2019-08-16 Heart Rate 71 /min 2019-02-08 Heart Rate 66 /min 2018-10-05 Heart Rate 70 /min 2018-03-08 Heart Rate 95 /min 2017-08-28 Heart Rate 83 /min 2017-05-26 Heart Rate 76 /min 2017-02-13 Heart Rate 72 /min 2016-11-21 Heart Rate 68 /min 2016-11-14 Heart Rate 76 /min 2016-08-15 Heart Rate 79 /min 2016-02-15 Heart Rate 76 /min 2015-11-16 Oximetry 98% 2017-08-28 Oximetry 99% 2017-05-26 Blood pressure systolic 154 mm Hg 2019-08-16 Blood pressure diastolic 89 mm Hg 2019-08-16 MEDICATIONS Medication Instructions Dosage Frequency Start End Duration Statu s Date Date Losartan Orally Once a 1 tablet 24h 30 day(s) Not-Ta ki Potassium 100 MG day ng Ibuprofen 600 MG Orally PRN 1 tablet 30 day(s) A ctive Lisinopril 20 MG Orally Once a 1 tablet 24h 30 day(s ) Active day Triamcinolone Externally bid 1 appl 12h Act analia Acetonide 0.1 % cloNIDine HCl 1 patch to 30 day(s) Not-T immanuel 0.1 MG/24HR skin ng Zofran 8 MG Orally Once a 1 tablet as 24h 30 day(s) Active day needed Oxybutynin Orally three 5 ml Oct, day(s) Not-Ta ki Chloride 5 MG times daily 2017 ng amLODIPine Orally Once a 1 tablet 24h 30 day(s) Not- Taki Besylate 10 MG day ng Epi-pen as directed Active PROCEDURES Procedure Date Ordered Result Body Site TRANSVAGINAL US, NON-OB Aug 15, 2016 IMMUNOASSAY, TUMOR, CA 125 Oct 05, 2018 IMMUNOASSAY, TUMOR, CA 125 Aug 15, 2016 IMMUNOASSAY, TUMOR, CA 125 Aug 28, 2017 TRANSVAGINAL US, NON-OB March 08, 2018 VENIPUNCTURE, PHYSICIAN May 16, 2016 DOC MEDS VERIFIED W/PT OR RE May 26, 2017 HANDLING Nov 16, 2015 IMMUNOASSAY, TUMOR, [place] 125 February 13, 2017 IMMUNOASSAY, TUMOR, CA 125 Nov 16, 2015 URINE DIP, AUTO, W/O SCOPE Nov 21, 2016 TRANSVAGINAL US, NON-OB Oct 05, 2018 URINE DIP, AUTO, W/O SCOPE Nov 14, 2016 DOC MEDS VERIFIED W/PT OR RE Aug 16, 2019 CYSTOMETROGRAM W/urethral pressure & voiding pressure Nov 21 16 study DOC MEDS VERIFIED W/PT OR RE Aug 15, 2016 IMMUNOASSAY, TUMOR, CA 125 Aug 16, 2019 VENIPUNCTURE, PHYSICIAN February 13, 2017 TRANSVAGINAL US, NON-OB May 16, 2016 DOC MEDS VERIFIED W/PT OR RE February 08, 2019 VENIPUNCTURE, PHYSICIAN February 15, 2016 TRANSVAGINAL US, NON-OB February 13, 2017 DOC MEDS VERIFIED W/PT OR RE Aug 28, 2017 IMMUNOASSAY, TUMOR, CA 125 March 08, 2018 HANDLING February 08, 2019 TRANSVAGINAL US, NON-OB Aug 28, 2017 Patient is non-smoker Aug 16, 2019 HANDLING Nov 21, 2016 DOC MEDS VERIFIED W/PT OR RE Nov 14, 2016 VENIPUNCTURE, PHYSICIAN May 26, 2017 Smoker, not counseled, med reason, life expectancy Oct 05, 2018 INSERT STRAIGHT CATH--BLADDER Nov 21, 2016 TRANSVAGINAL US, NON-OB Nov 16, 2015 URINE DIP, AUTO, W/O SCOPE Aug 15, 2016 DOC MEDS VERIFIED W/PT OR RE February 13, 2017 TRANSVAGINAL US, NON-OB Nov 14, 2016 DOC MEDS VERIFIED W/PT OR RE May 16, 2016 IMMUNOASSAY, TUMOR, CA 125 February 08, 2019 DOC MEDS VERIFIED W/PT OR RE Oct 05, 2018 DOC MEDS VERIFIED W/PT OR RE March 08, 2018 IMMUNOASSAY, TUMOR, CA 125 May 26, 2017 Patient is non-smoker February 08, 2019 DOC MEDS VERIFIED W/PT OR RE Nov 16, 2015 IMMUNOASSAY, TUMOR, CA 125 February 15, 2016 VENIPUNCTURE, PHYSICIAN Oct 05, 2018 VENIPUNCTURE, PHYSICIAN March 08, 2018 TRANSVAGINAL US, NON-OB May 26, 2017 IMMUNOASSAY, TUMOR, CA 125 Nov 14, 2016 Patient is non-smoker Oct 05, 2018 DOC MEDS VERIFIED W/PT OR RE Nov 21, 2016 TRANSVAGINAL US, NON-OB February 08, 2019 VENIPUNCTURE, PHYSICIAN February 08, 2019 VENIPUNCTURE, PHYSICIAN Aug 16, 2019 ELECTRO-UROFLOWMETRY, FIRST Nov 21, 2016 IMMUNOASSAY, TUMOR, CA 125 May 16, 2016 VENIPUNCTURE, PHYSICIAN Nov 14, 2016 TRANSVAGINAL US, NON-OB February 15, 2016 TRANSVAGINAL US, NON-OB Aug 16, 2019 VENIPUNCTURE, PHYSICIAN Aug 15, 2016 DOC MEDS VERIFIED W/PT OR RE February 15, 2016 VENIPUNCTURE, PHYSICIAN Nov 16, 2015 RESULTS Name Result Date Reference Range CA125 (IH) CA125 6.5 Ultrasound: Transvaginal (IH) Image Accessible CA125 (IH) CA125 5.7 Cytopathology 2019-02-08 Results Below Ultrasound: Transvaginal (IH) Image Accessible CA125 (IH) CA125 5.4 Ultrasound: Transvaginal (IH) Image Accessible CA125 (IH) CA125 8.4 Ultrasound: Transvaginal (IH) Image Accessible CA125 (IH) CA125 6.9 Ultrasound: Transvaginal (IH) Image Accessible CA125 (IH) CA125 4.5 Ultrasound: Transvaginal (IH) Image Accessible Yes CA125 (IH) CA125 7.5 Ultrasound: Transvaginal (IH) Image Accessible Yes Urine Dip, Automated (IH) Microscopic Examination Urine-Color yellow Appearance Specific [place] 1.030 pH 5.5 Glucose neg Protein neg Occult Blood neg Bilirubin neg Urobilinogen,Semi-Qn 0.2 Nitrite, Urine neg Ketones neg WBC Esterase neg Urinalysis Gross Exam Cytopathology 2016-11-21 Results Below Urine Dip, Automated (IH) Microscopic Examination Urine-Color Yellow Appearance Specific [place] 1.025 pH 6.0 Glucose Negative Protein Trace Occult Blood Trace-intact Bilirubin Negative Urobilinogen,Semi-Qn 0.2 E.U./dL Nitrite, Urine Negative Ketones Negative WBC Esterase Urinalysis Gross Exam CA125 (IH) CA125 5.8 Ultrasound: Transvaginal (IH) Image Accessible Yes Urine Dip, Automated (IH) Microscopic Examination Urine-Color Yellow Appearance Specific [place] >=1.030 pH 6.0 Glucose Negative Protein Negative Occult Blood Trace-intact Bilirubin Negative Urobilinogen,Semi-Qn 0.2 E.U,/dL Nitrite, Urine Negative Ketones Negative WBC Esterase Urinalysis Gross Exam CA125 (IH) CA125 4.6 Ultrasound: Transvaginal (IH) Image Accessible Yes CA125 (IH) CA125 5.3 Ultrasound: Transvaginal (IH) Image Accessible Yes CA125 (IH) CA125 4.9 Ultrasound: Transvaginal (IH) Image Accessible Yes CA125 (IH) CA125 8.2 Cytopathology 2015-11-16 Results Below Ultrasound: Transvaginal (IH) Image Accessible Yes REASON FOR VISIT cx, tas, Update Demographics - Personal Info, cx, Ovarian cyst, Ovarian cyst, Bladder issue, Incotience, BLOT, Boderline ovarian tumor, No show, Borderline ovarian tumor, Uterine fibroid, Left ovariancyst, On Payment Plan, BLOT; Fibroid uterus, BLOT, fibroid uterus, Rescheduled/new ins, FYI only, Borderline ovarian tumor, fibroid uterus, RE: [facility] ER visit, Urology Visit 02/05/17, urinary [id number] 12/25, severe urinary incontinence, auth, Boderline ovarian tumor, Urinary leakage, Ovarian cyst, Borderline ovarian tumor, Ovarian cyst, Pt showed up for appt, Pt cancelled appt, Cancel Appointment Request, Reschedule Appointment Request, Neoplasm uncertain behavior right ovary, Left ovarian cyst, Pain, Borderline ovarian tumor, Referral from Dr. Kumar Insurance Providers [facility] Member Patient Patient Patient Patient Patient Subscriber Subscriber Subscriber Group Insurance Plan Plan Plan Plan ID Relationship Address Phone Name Date of ID Name Date of No Type Insurance Insurance Insurance Coverage to Subscriber Address Phone Name Dates Medicaid [phone] Medicaid self Kirti [id number] ([place]) [place] [address] ([place]) [facility] [address]
--- NOTE | 2021-08-03 07:53 | ED.GENADUL_ITS ---
Discharge Plan Disposition Patient Disposition: HOME Condition: Stable Discharge Details Clinical Impression: Right ankle sprain Primary Care Provider: Jay Tracy ED Provider: Rex Whitlock Home Meds and New Rx's Prescriptions: Continued triamcinolone acetonide 0.5 % cream 1 applic topical BID Qty: 15 RF: 3 amlodipine 10 mg tablet 10 mg PO DAILY Qty: 90 RF: 4 prochlorperazine maleate 5 mg tablet See Rx Instructions PO TID PRN (Reason: headaches and nausea) Qty: 30 RF: 3 topiramate [Topamax] 25 mg tablet 25 mg PO QHS Qty: 30 RF: 3 lisinopril 30 mg tablet 30 mg PO DAILY Qty: 90 RF: 4 epinephrine [EpiPen 2-Matthew] 0.3 mg/0.3 mL auto-injector 0.3 mg IM ONCE RF: 0 Discharge Instructions Instructions: Ankle Sprain (ED) Medical Decision Making 50 yo female with hx of hypertension who comes in with chief complaint of right ankle pain. 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 She denies hitting her head or loc. She has no head pain, neck pain, back pain, chest pain, abdomen pain. SHe has pain of anterior and lateral ankle. She has mild swelling over the lateral malleolus, normal sensation and pulses, is able to move the ankle and bear weight but with pain. No pain over the metatarsals. Suspect ankle sprain but will xray to evaluate for fracture. xray unremarkable on my read, awaiting vrad report. Will treat as sprain with crutches and walking boot if vrad agrees, advised to f/u with pcp if pain continues in a week and return precautions given vrad report did not come back prior to d/c as she preferred to leave and if they see any fracture I will contact her. Differential Diagnosis Differential Diagnosis: ankle sprain, ankle fracture Imaging Data Radiologic Study: Attestation: I personally reviewed and interpreted this imaging study as follows: Imaging: X-Ray My impression: no acute findings HPI General Mode of arrival: ambulatory . Date/Time Provider Initiated Documentation: 08/03/21 07:50 . Limitations to Documentation: no limitations . Information obtained by: patient . History of Present Illness 50 year old F presents to the emergency department with the chief complaint of right ankle pain, described as moderate, Quality is described as aching, and is localized to the right and lower extremity. Patient reports no radiation. Patient started experiencing this day(s) (1) and it has been constant. Rest improves symptom(s), Movement worsens symptoms . Patient notes no other symptoms.. Patient did receive the following treatments prior to arrival, none Related Data Home Medications Medication Instructions Recorded Confirmed epinephrine 0.3 mg/0.3 mL 0.3 mg IM ONCE 05/13/21 08/03/21 injection, auto-injector amlodipine 10 mg tablet 10 mg PO DAILY #90 tab 05/31/21 08/03/21 triamcinolone acetonide 0.5 % 1 applic TOPICAL BID #15 g 05/31/21 08/03/21 topical cream lisinopril 30 mg tablet 30 mg PO DAILY #90 tab 06/14/21 08/03/21 prochlorperazine maleate 5 mg See Rx Instructions PO TID PRN #30 07/01/21 08/03/21 tablet tab topiramate 25 mg tablet 25 mg PO QHS #30 tab 07/01/21 08/03/21 Previous Rx's Medication Instructions Recorded amlodipine 10 mg tablet 10 mg PO DAILY #90 tab 05/31/21 triamcinolone acetonide 0.5 % 1 applic TOPICAL BID #15 g 05/31/21 topical cream lisinopril 30 mg tablet 30 mg PO DAILY #90 tab 06/14/21 prochlorperazine maleate 5 mg See Rx Instructions PO TID PRN #30 07/01/21 tablet tab topiramate 25 mg tablet 25 mg PO QHS #30 tab 07/01/21 Allergies Allergy/AdvReac Type Severity Reaction Status Date / Time cephalexin monohydrate Allergy Severe Anaphylaxsi Verified 08/03/21 07:50 [From Keflex] s onion Allergy Unknown Verified 08/03/21 07:50 Latex, Natural Rubber Allergy Skin Rash Verified 08/03/21 07:50 hydromorphone [From Dilaudid] AdvReac Unknown Nausea Verified 08/03/21 07:50 meperidine HCl [From Demerol] AdvReac vomits Verified 08/03/21 07:50 morphine AdvReac vomits Verified 08/03/21 07:50 Penicillins AdvReac Nausea Verified 08/03/21 07:50 nuts Allergy Unknown Uncoded 08/03/21 07:50 General Stated Complaint: Orthopedic MAUDE: 4 Review of Systems All systems reviewed & are unremarkable except as noted in HPI and below Constitutional Constitutional: Denies chills, Denies fever(s) and Denies weakness Cardiovascular Cardiovascular: Denies chest pain and Denies dyspnea Respiratory Respiratory: Denies cough and Denies dyspnea Gastrointestinal Gastrointestinal: Denies abdominal pain, Denies nausea and Denies vomiting Neurologic Neurologic: Denies weakness [facility] Medical History Acute pancreatitis (~09/12/20) Atopic dermatitis (~11/13/20) Benign neoplasm of right ovary Essential (primary) hypertension (~03/28/19) Kidney mass (~09/12/20) Migraine headache without aura Mixed incontinence (~11/09/18) Ovarian mass (~09/12/20) Surgical History H/O cystoscopy H/O LEEP (~2007) 2010 H/O oophorectomy History of appendectomy (~2007) History of bilateral tubal ligation (~1991) History of exploratory laparotomy (~09/2015) RSO History of reversal of tubal ligation (~2002) History of suburethral sling procedure [place] Hx laparoscopic cholecystectomy (~1993) S/P excision of lipoma (~11/27/20) RT axillary lipoma- first removal 5 years prior Status post cryoablation (~2018) Family History Daughter No problems noted. Daughter No problems noted. Maternal Grandfather , 70's Stroke Hyperlipidemia Paternal Grandfather , 70's Cancer Heart disease Hyperlipidemia Stroke Maternal Grandmother , 40's Breast cancer Paternal Grandmother , 70's Cancer liver Cancer Hypertension Stroke Social History Smoking/Tobacco Use Status: Never Second Hand Exposure: No Smoking risk assessment performed?: Yes Alcohol Intake: never Drug use: Never Substance use type: does not use Caregiver/Support person: No Household members: children Housing: apartment Pets and animals: Yes Pets and animals: dog(s) and fish Sexually active: Yes Do you think of yourself as: straight/heterosexual Current gender identity: female How often do you talk on the phone with friends or family?: three or more times per week How often do you get together with friends or relatives?: three or more times per week Panel score (0-1 are the most socially isolated patients): 1 Seatbelt use: always Helmet use: Yes Helmet use: always Drive intox or ride w/intox driver's license examiner: No Do you feel safe at home: Yes Do you feel safe in your relationship?: Yes Exam Const General: no acute distress Orientation: alert HENMT Head: normal to inspection Ears: external ears normal General nose exam: external nose normal Mouth: moist mucous membranes Eyes General: appearance normal, both eyes and all related structures Neck Neck: normal visual inspection Resp Effort & Inspection: normal respiratory effort and able to speak in complete sentences Cardio Rate: regular rate Skin General skin exam: no rashes or lesions noted Neuro General: patient alert and patient oriented x3 Extrem General: capillary refill normal Psych Mental Status: mental status grossly normal Course Vital Signs Vital signs: Vital Signs Temperature 36.4 C L 08/03/21 07:44 Pulse 74 08/03/21 07:44 Respiratory Rate 16 08/03/21 07:44 Blood Pressure 182/96 H 08/03/21 07:44 Pulse Oximetry 96 08/03/21 07:44 Temperature 36.4 C L 08/03/21 07:44 Temperature Source Temporal Artery Scan 08/03/21 07:44 Pulse 74 08/03/21 07:44 Respiratory Rate 16 08/03/21 07:44 Respiratory Effort Non-Labored 08/03/21 07:49 Blood Pressure 182/96 H 08/03/21 07:44 Blood Pressure Position Sitting 08/03/21 07:44 Pulse Oximetry 96 08/03/21 07:44 Oxygen Delivery Method Room Air 08/03/21 07:44 Oxygen Flow Rate 0 08/03/21 07:44 Pain Level 6 08/03/21 07:51
[2021-08-03 08:56] VITALS: BP 182/96; PULSE 74; RESP 16; TEMP 36.4; O2SAT 96
--- NOTE | 2021-08-03 09:25 | DI.VRAD_ITS ---
PROCEDURE INFORMATION: Exam: XR Right Ankle Exam date and time: 08/03/2021 7:54 AM Age: 50 years old Clinical indication: Injury or trauma; Other: Pain s/ps pain; Sprain or strain; Ankle; Right TECHNIQUE: Imaging protocol: XR Right ankle. Views: 3 or more views. COMPARISON: US EXTREMITY SOFT TISSUE LMTD [id number] 10/17/2020 9:43 AM FINDINGS: Bones/joints: Normal. Soft tissues: Normal. IMPRESSION: No acute findings. Dictated and Authenticated by: Adilson Spence MD. Ordering:BRANDEE Goodman MD
--- NOTE | 2021-08-03 19:31 | NUR.NOTE ---
Nursing Note: Patient called requesting where she could buy a knee walker she states the she is unable to use crutches,this communications writer informed her that she could possibly order one on line. Patient also requesting the status of her radiology read. Per Dr. Whitlock's request this communications writer informs the patient that her radiology read was negative for any acute findings.
== END 2021-08-03 08:58 | disposition home or self-care (01) ==
PROVIDERS: Emergency Provider Emergency Medicine; PCP Nurse Practitioner Family
DX: S93.491A Sprain of other ligament of right ankle, initial encounter (principal); W17.2XXA Fall into hole, initial encounter; X50.9XXA Other and unspecified overexertion or strenuous movements or postures, initial encounter
CPT/HCPCS: 29515; 99283; 73610

== ENCOUNTER 2022-10-29 23:25 | Outpatient (REF) | payer BC, SELFPAY | END 2022-10-29 23:26 | disposition home or self-care (01) | LOC: LBN 23:25 | PROVIDERS: PCP Nurse Practitioner Family; Visit Provider Nurse Practitioner Family | DX: N39.0 Urinary tract infection, site not specified (principal) | CPT/HCPCS: 87077; 87086; 87186 ==

== ENCOUNTER 2022-12-14 16:21 | Emergency (ER) | payer SELFPAY ==
[2022-12-14 16:34] VITALS: BP 172/94; PULSE 81; RESP 16; TEMP 36.8; O2SAT 99
--- NOTE | 2022-12-14 17:15 | DI.RAD_ITS ---
Exam(s) XR HAND RT COMPLETE EXAM: XR HAND RT COMPLETE CLINICAL HISTORY: third digit pain, swelling post fall. TECHNIQUE: 2D digital imaging was performed of the right hand. Three images were obtained. AP, late ral and oblique views were obtained. COMPARISON: CR RIGHT HAND COMPLETE from 06/05/2013 FINDINGS: BONES: No acute fracture is present. No bony destructive lesion is seen. JOINTS: No dislocation present. Mild degenerative changes are seen in the hand and wrist. SOFT TISSUE: Normal. IMPRESSION: No acute fracture or dislocation. DATA REPOSITORY: RADIATION DOSE DELIVERED:
--- NOTE | 2022-12-14 17:18 | ED.GENADUL_ITS ---
Discharge Plan Disposition Patient Disposition: Home Condition: Improving Discharge Details Chief Complaint: Orthopedic Clinical Impression: Finger pain Primary Care Provider: Jay Tracy ED Provider: Adilson Holland Home Meds and New Rx's Prescriptions: No Action acetaminophen [Tylenol Extra Strength] 500 mg tablet 500 mg PO Q6H PRN albuterol sulfate 90 mcg/actuation HFA aerosol inhaler 2 puff inhalation QID PRN (Reason: shortness of breath or wheezing) Qty: 8.5 0RF triamcinolone acetonide 0.5 % cream 1 applic topical BID Qty: 15 3RF epinephrine [EpiPen 2-Matthew] 0.3 mg/0.3 mL auto-injector 0.3 mg IM ONCE Rx Instructions: as a single dose Discharge Instructions Instructions: Finger Sprain (ED) Additional Instructions: Ice elevate and continue to use ibuprofen and/or acetaminophen as needed. Please return to emergency part for any worsening symptoms. Medical Decision Making 52-year-old female presents 1 day after injuring her finger after a slip and fall at work, pain and swelling to proximal aspect of right third digit, flexion extension sensory exam vascular exam and strength intact; range of motion in finger limited by pain and swelling; patient is been icing finger at home. Consider fracture of proximal phalanx versus dislocation versus fracture of distal metacarpal versus dislocation versus contusion versus sprain. X-ray, patient offered analgesia anti-inflammatory but declined at this time. 18: 07 patient resting abdomen no acute distress. No evidence of fracture or dislocation. Home care instruction including ice anti-inflammatories elevation. Return precautions given HPI General Date/Time Provider Initiated Documentation: 12/14/22 16:43 . HPI Narrative: 52-year-old female presents 1 day after falling at work fell on her right hand, pain and swelling to the base of her third finger on her right hand. No other injuries. Related Data Home Medications Medication Instructions Recorded Confirmed epinephrine 0.3 mg/0.3 mL 0.3 mg IM ONCE 05/13/21 12/14/22 injection, auto-injector (EpiPen 2-Matthew) acetaminophen 500 mg tablet 500 mg PO Q6H PRN 08/07/21 12/14/22 (Tylenol Extra Strength) albuterol sulfate 90 mcg/actuation 2 puff inhalation QID PRN 10/29/22 12/14/22 aerosol inhaler shortness of breath or wheezing #8.5 grams triamcinolone acetonide 0.5 % 1 applic topical BID #15 grams 10/29/22 12/14/22 topical cream Previous Rx's Medication Instructions Recorded albuterol sulfate 90 mcg/actuation 2 puff inhalation QID PRN 10/29/22 aerosol inhaler shortness of breath or wheezing #8.5 grams triamcinolone acetonide 0.5 % 1 applic topical BID #15 grams 10/29/22 topical cream Allergies Allergy/AdvReac Type Severity Reaction Status Date / Time cephalexin monohydrate Allergy Severe Anaphylaxsi Verified 12/14/22 16:38 [From Keflex] s onion Allergy Unknown Verified 12/14/22 16:38 Latex, Natural Rubber Allergy Skin Rash Verified 12/14/22 16:38 hydromorphone [From Dilaudid] AdvReac Unknown Nausea Verified 12/14/22 16:38 meperidine HCl [From Demerol] AdvReac vomits Verified 12/14/22 16:38 morphine AdvReac vomits Verified 12/14/22 16:38 Penicillins AdvReac Nausea Verified 12/14/22 16:38 nuts Allergy Unknown Uncoded 12/14/22 16:38 General Stated Complaint: Orthopedic MAUDE: 4 Review of Systems Narrative: Review of Systems Constitutional: negative Eyes: negative ENT: negative Cardiovascular: negative Respiratory: negative Gastrointestinal: negative : negative Musculoskeletal: Finger pain, swelling Skin: negative Neurologic: negative Psych: negative PFSH All Active Problems (Updated 12/14/22 @ 18:08 by Adilson Holland MD) Finger pain (Acute) Hot flashes due to menopause (Acute) Left knee pain (Acute) Otitis media due to severe acute respiratory syndrome coronavirus 2 (SARS-CoV-2) (Acute) URI, acute (Acute) Right ankle sprain (Acute) Migraine headache without aura (Acute) Kidney mass (Acute ~09/12/20) Atopic dermatitis (Acute ~11/13/20) Essential (primary) hypertension (Acute ~03/28/19) Headache (Acute) Medical History Acute pancreatitis (~09/12/20) Atopic dermatitis (~11/13/20) Benign neoplasm of right ovary Essential (primary) hypertension (~03/28/19) Kidney mass (~09/12/20) Migraine headache without aura Mixed incontinence (~11/09/18) Ovarian mass (~09/12/20) Surgical History H/O cystoscopy H/O LEEP (~2007) 2010 H/O oophorectomy History of appendectomy (~2007) History of bilateral tubal ligation (~1991) History of exploratory laparotomy (~09/2015) RSO History of reversal of tubal ligation (~2002) History of suburethral sling procedure [facility] Hx laparoscopic cholecystectomy (~1993) S/P excision of lipoma (~11/27/20) RT axillary lipoma- first removal 5 years prior Status post cryoablation (~2018) Family History Daughter No problems noted. Daughter No problems noted. Maternal Grandfather , 70's Stroke Hyperlipidemia Paternal Grandfather , 70's Cancer Heart disease Hyperlipidemia Stroke Maternal Grandmother , 40's Breast cancer Paternal Grandmother , 70's Cancer liver Cancer Hypertension Stroke Social History (Updated 11/03/22 @ 14:06 by Leesa Ball) Smoking/Tobacco Use Status: Never Second Hand Exposure: No Smoking risk assessment performed?: Yes Alcohol Intake: current Alcohol Intake frequency: holidays/special occasions only Alcohol type: wine Drug use: Never Substance use type: does not use Caregiver/Support person: No Household members: children Housing: apartment Communication Needs: None Do you need help understanding health information?: Never Pets and animals: Yes Pets and animals: dog(s) and fish Sexually active: Yes Do you think of yourself as: straight/heterosexual Current gender identity: female What is your relationship status?: How often do you talk on the phone with friends or family?: once per week How often do you get together with friends or relatives?: once per week How often do you attend jain or spiritism services?: decline to answer Do you belong to any clubs or organized social groups?: yes Panel score (0-1 are the most socially isolated patients): 1 What type of physical activity do you participate in: none Special anabella needs: No Seatbelt use: always Helmet use: Yes Helmet use: always 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 Do you feel safe at home: Yes Do you feel safe in your relationship?: Yes Exam Narrative Exam Narrative: Physical Examination General: alert, awake, cooperative, resting comfortably, no acute distress HEENT: normocephalic, atraumatic; PERRL, EOM intact, conjunctiva normal; no nasal discharge; moist mucous membranes, oral and pharyngeal mucosa normal, tolerating secretions Neuro: AAOx3, normal speech, moving all extremities Extremities: Swelling to base of third digit of right hand, proximal and distal flexion and extension intact, median radial and ulnar nerve distribution intact, strong radial pulse, full range of motion wrist hand elbow soft compartments Psych: Appropriate mood and affect Course Vital Signs Vital signs: Vital Signs Temperature 36.8 C 12/14/22 16:34 Pulse 81 12/14/22 16:34 Respiratory Rate 16 12/14/22 16:34 Blood Pressure 172/94 H 12/14/22 16:34 Pulse Oximetry 99 12/14/22 16:34 Temperature 36.8 C 12/14/22 16:34 Temperature Source Skin 12/14/22 16:34 Pulse 81 12/14/22 16:34 Respiratory Rate 16 12/14/22 16:34 Respiratory Effort 12/14/22 16:37 Blood Pressure 172/94 H 12/14/22 16:34 Blood Pressure Position Sitting 12/14/22 16:34 Pulse Oximetry 99 12/14/22 16:34 Oxygen Delivery Method Room Air 12/14/22 16:34 Oxygen Flow Rate 0 12/14/22 16:34 Pain Level 5 12/14/22 16:34
--- NOTE | 2022-12-14 17:47 | DI.VRAD_ITS ---
PROCEDURE INFORMATION: Exam: XR Right Hand Exam date and time: 12/14/2022 5:19 PM Age: 52 years old Clinical indication: Hand; Right; Patient HX: Third digit pain, swelling post fall TECHNIQUE: Imaging protocol: Radiologic exam of the Right hand. Views: 3 or more views. COMPARISON: US EXTREMITY SOFT TISSUE LMTD [id number] 10/17/2020 9:43 AM FINDINGS: Bones/joints: No acute fracture. No dislocation. Mild osteo arthritic features of the scaphoid trapezium and trapezium 1st metacarpal joint. Degenerative arthritic change of the 5th finger D IP joint. Soft tissues: Mild soft tissue swelling. No gas or foreign body. IMPRESSION: 1. No fracture or dislocation. 2. Nonspecific soft tissue swelling without gas or foreign body. 3. Arthritic changes. Dictated and Authenticated by: Manoj Hall MD. Ordering:JENA De Anda MD
== END 2022-12-14 18:29 | disposition home or self-care (01) ==
PROVIDERS: Emergency Provider Emergency Medicine; PCP Nurse Practitioner Family
DX: M79.644 Pain in right finger(s) (principal); W01.0XXA Fall on same level from slipping, tripping and stumbling without subsequent striking against object, initial encounter; Y99.0 Civilian activity done for income or pay
CPT/HCPCS: 99283; 73130; 99284

== ENCOUNTER 2022-12-22 02:51 | Outpatient (CLI) | payer OTHER, SELFPAY ==
[2022-12-22 17:56] LABS: Anion Gap 5.5 mmol/L (3-11); BUN 15 mg/dL (7-18); CO2 28.5 mmol/L (21.0-32.0); CREATININE 0.8 mg/dL (0.55-1.02); Calcium 9.2 mg/dL (8.5-10.1); Chloride 109 mmol/L (98-107); Estimated GFR 89.15 (mL/min/1.73m2); Glucose 101 mg/dL (74-106); Potassium 3.5 mmol/L (3.5-5.1); Sodium 143 mmol/L (136-145)
== END 2022-12-22 02:52 | disposition home or self-care (01) ==
PROVIDERS: PCP Nurse Practitioner Family; Visit Provider Nurse Practitioner Family
DX: N28.89 Other specified disorders of kidney and ureter (principal)
CPT/HCPCS: 36415; 80048

== ENCOUNTER 2023-01-19 02:42 | Outpatient (CLI) | payer OTHER, SELFPAY ==
[2023-01-25 18:06] LABS: Renin Activity, Plasma <0.6 ng/mL/h
== END 2023-01-19 02:43 | disposition home or self-care (01) ==
PROVIDERS: PCP Nurse Practitioner Family; Visit Provider Nurse Practitioner Family
DX: I10 Essential (primary) hypertension (principal)
CPT/HCPCS: 36415; 82088; 84244

== ENCOUNTER 2023-02-12 20:58 | Emergency (ER) | payer OTHER, SELFPAY ==
[2023-02-12] VITALS (134 sets, daily range): BP systolic 148–215; BP diastolic 77–103; PULSE 72–103; RESP 11–36; TEMP 36.3; O2SAT 93–98
--- NOTE | 2023-02-12 21:00 | RT.EKG_ITS ---
APPROVED REPORT Exam: Resting ECG Reason for Exam: chest pain Patient Location: E HR:85 bpm ECG Measurements Heart Rate 85 AXIS WI 135 P 3 QRSd 80 QRS 23 QT 376 T 49 QTc 448 Conclusion Sinus rhythm...normal P axis, V-rate 60- 99 Consider left ventricular hypertrophy...(S V1+R V5/V6) >3.25mV sinus rhythm, normal axis, normal intervals, nonischemic
--- NOTE | 2023-02-12 21:14 | DI.RAD_ITS ---
Exam(s) XR CHEST 1V IN DI DEPT EXAM: XR CHEST 1V IN DI DEPT CLINICAL HISTORY: chest pain TECHNIQUE: 2D digital imaging was performed of the chest. One image was obtained. An AP view was ob tained. COMPARISON: No exams were available for comparison FINDINGS: MEDIASTINUM: Normal. HEART: Normal. PULMONARY VASCULATURE: Normal. LUNGS: Clear. PLEURAL SPACE: No pleural effusion or pneumothorax. BONE:Within normal limits for the patient's age. OTHER FINDINGS:Normal. IMPRESSION: No acute pulmonary findings. DATA REPOSITORY: RADIATION DOSE DELIVERED:
--- NOTE | 2023-02-12 21:15 | DI.CT_ITS ---
Exam(s) CT HEAD WO EXAM: CT HEAD WO CLINICAL HISTORY: eft sided heaviness, chest pain, HTN. TECHNIQUE: Imaging Protocol: Axial computed tomography images with coronal and sagittal reformatted images were created and reviewed COMPARISON: CT CT BRAIN NECK CTA from 05/05/2021 FINDINGS: Ventricles and Extra axial spaces: Normal in size and morphology for the patient's age. Hemorrhage: None. Cerebral parenchyma: Normal. Midline shift: None. Brainstem/Cerebellum: Normal. Calvarium: Normal. Visualized Paranasal sinuses/Mastoids: Minimal mucosal thickening in the maxillary sinuses bilaterall y. The remaining visualized paranasal sinuses and mastoid air cells are clear. Soft Tissues: Unremarkable. IMPRESSION: No acute intracranial process. RADIATION DOSE DELIVERED: 717.06mGy.cm Total DLP DATA REPOSITORY: All CT scans at this facility are submitted to the National Radiology Data Registry (NRDR) Dose Index Registry (DIR) with the [employer] ([employer]). RADIATION OPTIMIZATION: All CT scans at this facility use at least one of these dose optimization te chniques: automated exposure control; mA and/or kV adjustment per patient size (includes targeted exa ms where dose is matched to clinical indication); or iterative reconstruction.
--- NOTE | 2023-02-12 21:16 | ED.GENADUL_ITS ---
Discharge Plan Disposition Patient Disposition: Home Discharge Details Chief Complaint: Chest Pain Clinical Impression: Chest pain Primary Care Provider: Jay Tracy ED Provider: Adilson Holland Home Meds and New Rx's Prescriptions: No Action acetaminophen [Tylenol Extra Strength] 500 mg tablet 500 mg PO Q6H PRN albuterol sulfate 90 mcg/actuation HFA aerosol inhaler 2 puff inhalation QID PRN (Reason: shortness of breath or wheezing) Qty: 8.5 0RF triamcinolone acetonide 0.5 % cream 1 applic topical BID Qty: 15 3RF epinephrine [EpiPen 2-Matthew] 0.3 mg/0.3 mL auto-injector 0.3 mg IM ONCE Rx Instructions: as a single dose clonidine 0.2 mg/24 hr patch weekly 0.2 mg transdermal .COMPLEX Qty: 4 7RF Rx Instructions: 0.2 mg transdermally Every 7 days; Discharge Instructions Instructions: Chest Pain (ED) Additional Instructions: Please follow-up with your primary care physician Medical Decision Making 52-year-old female history of poorly controlled hypertension presents with anterior chest pain over the last day nonexertional with heaviness in her left arm and left leg. Hypertension 200s over 100s, normoxic no respiratory distress, no peripheral edema, equal strong radial and DP pulses, no abdominal pain or back pain. Cranial nerves II through XII intact 5 out of 5 strength upper and lower extremities. Alert oriented interactive. Does appear moderately uncomfortable. EKG normal sinus rhythm normal axis borderline LVH, nonischemic. Must consider ACS versus hypertensive urgency versus musculoskeletal versus intracranial process such as edema or hemorrhage given left-sided symptoms however less likely versus anxiety versus lower suspicion for aortic pathology given nature of discomfort neuro status pulse examination and abdominal examination. Will obtain screening labs imaging including CT head and chest x-ray, aspirin and nitroglycerin sublingual close reassessment of vital signs. 22: 02 patient resting comfortably no acute distress. Blood pressure improved after nitro. 1: 21 Given patient's persistent left-sided symptoms chest pain and hypertension a CT chest abdomen pelvis for aortic dissection study was ordered. This was negative. Patient was given Ativan for muscle relaxant and anxiolysis effect. This helped greatly. Her pressure is improved symptomatology has greatly improved. She is chest pain-free hemodynamically stable. Patient has close follow-up with her primary care physician. 2 troponins negative EKG nonischemic. Less likely stroke or ACS. Consider musculoskeletal versus anxiety HPI General Date/Time Provider Initiated Documentation: 02/12/23 21:05 . HPI Narrative: 52-year-old female history of hypertension presents with anterior chest pain, associate with heaviness of left arm and left leg over the past day nonexertional, denies shortness of breath fevers chills nausea or vomiting. Denies history of thromboembolic disease. Has had longstanding poorly controlled elevated blood pressure in the past. Related Data Home Medications Medication Instructions Recorded Confirmed epinephrine 0.3 mg/0.3 mL 0.3 mg IM ONCE 05/13/21 02/12/23 injection, auto-injector (EpiPen 2-Matthew) acetaminophen 500 mg tablet 500 mg PO Q6H PRN 08/07/21 02/12/23 (Tylenol Extra Strength) albuterol sulfate 90 mcg/actuation 2 puff inhalation QID PRN 10/29/22 02/12/23 aerosol inhaler shortness of breath or wheezing #8.5 grams clonidine 0.2 mg/24 hr weekly 0.2 mg transdermal .COMPLEX #4 ea 12/25/22 02/12/23 transdermal patch triamcinolone acetonide 0.5 % 1 applic topical BID #15 grams 01/26/23 02/12/23 topical cream Previous Rx's Medication Instructions Recorded albuterol sulfate 90 mcg/actuation 2 puff inhalation QID PRN 10/29/22 aerosol inhaler shortness of breath or wheezing #8.5 grams clonidine 0.2 mg/24 hr weekly 0.2 mg transdermal .COMPLEX #4 ea 12/25/22 transdermal patch triamcinolone acetonide 0.5 % 1 applic topical BID #15 grams 01/26/23 topical cream Allergies Allergy/AdvReac Type Severity Reaction Status Date / Time cephalexin monohydrate Allergy Severe Anaphylaxsi Verified 12/25/22 10:53 [From Keflex] s onion Allergy Unknown Verified 12/25/22 10:53 Latex, Natural Rubber Allergy Skin Rash Verified 12/25/22 10:53 hydromorphone [From Dilaudid] AdvReac Unknown Nausea Verified 12/25/22 10:53 meperidine HCl [From Demerol] AdvReac vomits Verified 12/25/22 10:53 morphine AdvReac vomits Verified 12/25/22 10:53 Penicillins AdvReac Nausea Verified 12/25/22 10:53 nuts Allergy Unknown Uncoded 12/25/22 10:53 General Stated Complaint: Chest Pain MAUDE: 2 Review of Systems Narrative: Review of Systems Constitutional: negative Eyes: negative ENT: negative Cardiovascular: Chest pain Respiratory: negative Gastrointestinal: negative : negative Musculoskeletal: negative Skin: negative Neurologic: negative Psych: negative PFSH All Active Problems (Updated 02/13/23 @ 01:23 by Adilson Holland MD) Chest pain (Acute) Essential hypertension (Acute) Hot flashes due to menopause (Acute) Left knee pain (Acute) Otitis media due to severe acute respiratory syndrome coronavirus 2 (SARS-CoV-2) (Acute) URI, acute (Acute) Right ankle sprain (Acute) Migraine headache without aura (Acute) Kidney mass (Acute ~09/12/20) Atopic dermatitis (Acute ~11/13/20) Headache (Acute) Medical History (Updated 02/13/23 @ 01:23 by Adilson Holland MD) Acute pancreatitis (~09/12/20) Benign neoplasm of right ovary Mixed incontinence (~11/09/18) Ovarian mass (~09/12/20) Surgical History (Updated 12/17/22 @ 08:55 by Jay Tracy NP) H/O cystoscopy H/O LEEP (~2007) 2010 H/O oophorectomy H/O partial nephrectomy History of appendectomy (~2007) History of bilateral tubal ligation (~1991) History of exploratory laparotomy (~09/2015) RSO History of reversal of tubal ligation (~2002) History of suburethral sling procedure [facility] Hx laparoscopic cholecystectomy (~1993) S/P excision of lipoma (~11/27/20) RT axillary lipoma- first removal 5 years prior Status post cryoablation (~2018) Family History Daughter No problems noted. Daughter No problems noted. Maternal Grandfather , 70's Stroke Hyperlipidemia Paternal Grandfather , 70's Cancer Heart disease Hyperlipidemia Stroke Maternal Grandmother , 40's Breast cancer Paternal Grandmother , 70's Cancer liver Cancer Hypertension Stroke Social History (Updated 11/03/22 @ 14:06 by Leesa Ball) Smoking/Tobacco Use Status: Never Second Hand Exposure: No Smoking risk assessment performed?: Yes Alcohol Intake: current Alcohol Intake frequency: holidays/special occasions only Alcohol type: wine Drug use: Never Substance use type: does not use Caregiver/Support person: No Household members: children Housing: apartment Communication Needs: None Do you need help understanding health information?: Never Pets and animals: Yes Pets and animals: dog(s) and fish Sexually active: Yes Do you think of yourself as: straight/heterosexual Current gender identity: female What is your relationship status?: How often do you talk on the phone with friends or family?: once per week How often do you get together with friends or relatives?: once per week How often do you attend congregation or druze services?: decline to answer Do you belong to any clubs or organized social groups?: yes Panel score (0-1 are the most socially isolated patients): 1 What type of physical activity do you participate in: none Special anabella needs: No Seatbelt use: always Helmet use: Yes Helmet use: always 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 Do you feel safe at home: Yes Do you feel safe in your relationship?: Yes Exam Narrative Exam Narrative: Physical Examination General: alert, awake, cooperative, uncomfortable appearing HEENT: normocephalic, atraumatic; PERRL, EOM intact, conjunctiva normal; no nasal discharge; moist mucous membranes, oral and pharyngeal mucosa normal, tolerating secretions Neck: supple, trachea midline; full ROM Chest: normal to inspection Respiratory: normal respiratory effort, speaking in full sentences, clear to auscultation, no wheezing, rales or rhonchi Cardiac: regular rate, regular rhythm, S1S2 intact, no murmurs rubs or gallops; equal bilateral radial pulses and DP pulses GI: abdomen soft, non-tender, non-distended; no palpable mass or hepatosplenomegaly Skin: no lesions, rashes or trauma appreciated Neuro: AAOx3, normal speech, moving all extremities; cranial nerves II through XII intact, 5 out of 5 strength upper and lower extremities bilaterally Psych: Appropriate mood and affect Course Vital Signs Vital signs: Vital Signs Temperature 36.3 C L 02/12/23 21:01 Pulse 96 H 02/12/23 21:01 Respiratory Rate 22 02/12/23 21:01 Blood Pressure 215/103 H 02/12/23 21:01 Pulse Oximetry 97 02/12/23 21:01 Temperature 36.3 C L 02/12/23 21:01 Temperature Source Oral 02/12/23 21:01 Pulse 96 H 02/12/23 21:01 Respiratory Rate 22 02/12/23 21:01 Blood Pressure 215/103 H 02/12/23 21:01 Blood Pressure Position Sitting 02/12/23 21:01 Pulse Oximetry 97 02/12/23 21:01 Oxygen Delivery Method Room Air 02/12/23 21:01 Oxygen Flow Rate 0 02/12/23 21:01 Pain Level 7 02/12/23 21:01
[2023-02-12] MEDS: nitroGLYcerin 0.4 MG TAB SL (21:26)
[2023-02-12 21:27] LABS: Abs Immature Grans 0.03 10^3/uL (0.0-0.06); Absolute Basophil Count 0.07 10^3/uL (0.0-0.2); Absolute Lymphocyte Count 2.66 10^3/uL (1.2-3.4); Absolute Monocyte Count 0.46 10^3/uL (0.1-0.8); Basophils % 0.9; Eosinophils % 6.6; HCT 42.4 % (36.0-46.0); HGB 13.8 g/dL (11.2-15.7); Immature Grans % 0.4; Lymphocytes % 34.9; MCH 25.5 pg (27.0-33.0); MCHC 32.5 % (32.0-36.0); MCV 78 fL (80-95); MPV 9.5 fL (8.0-11.0); Neutrophils % 51.2; Platelet Count 285 10^3/uL (130-400); RBC 5.42 10^6/uL (3.93-5.22); RDW-SD 39.6 fL; WBC 7.62 10^3/uL (4.4-10.8)
[2023-02-12] MEDS: Aspirin 81 MG CHEW 324 MG CH (21:27)
[2023-02-12 21:47] LABS: INR 0.9 (0.9-1.1); PTT Activated 25.2 sec (21.5-31.9); Prothrombin Time 9.2 sec (9.3-11.0)
[2023-02-12 21:51] LABS: ALT 28 U/L (14-59); AST 21 U/L (15-37); Albumin 3.5 g/dL (3.4-5.0); Alkaline Phosphatase 111 U/L (46-116); Anion Gap 7.1 mmol/L (3-11); BUN 13 mg/dL (7-18); Bilirubin, Total 0.3 mg/dL (0.2-1.0); CO2 26.9 mmol/L (21.0-32.0); CREATININE 0.7 mg/dL (0.55-1.02); Calcium 8.8 mg/dL (8.5-10.1); Chloride 106 mmol/L (98-107); Estimated GFR 104.65 (mL/min/1.73m2); Glucose 117 mg/dL (74-106); Potassium 3.5 mmol/L (3.5-5.1); Sodium 140 mmol/L (136-145); TSH (W/Ref FT4) 0.96 uIU/mL (0.36-3.74); Total Protein 7.4 g/dL (6.4-8.2); Troponin I < 50 ng/L (<or=60)
[2023-02-12] MEDS: ACETAMINOPHEN 1,000 MG/100 ML BTL 400 MG IVPB (22:08)
--- NOTE | 2023-02-12 22:25 | DI.VRAD_ITS ---
PROCEDURE INFORMATION: Exam: CT Head Without Contrast Exam date and time: 02/12/2023 9:53 PM Age: 52 years old Clinical indication: Other: HTN; Additional info: HTN, right eye pain TECHNIQUE: Imaging protocol: Computed tomography of the head without contrast. Radiation optimization: All CT scans at this facility use at least one of these dose optimization techniques: automated exposure control; mA and/or kV adjustment per patient size (includes targeted exams where dose is matched to clinical indication); or iterative reconstruction. COMPARISON: CT BRAIN NECK CTA 05/05/2021 3:38 PM FINDINGS: Brain: Normal. No hemorrhage. Unremarkable white matter. No mass effect. Cerebral ventricles: No ventriculomegaly. Paranasal sinuses: Visualized sinuses are unremarkable. No fluid levels. Mastoid air cells: Visualized mastoid air cells are well aerated. Bones/joints: Unremarkable. No acute fracture. Soft tissues: Unremarkable. IMPRESSION: No acute intracranial abnormality. Dictated and Authenticated by: Rex Cornell MD. Ordering:JENA De Anda MD
--- NOTE | 2023-02-12 22:25 | DI.VRAD_ITS ---
PROCEDURE INFORMATION: Exam: XR Chest Exam date and time: 02/12/2023 9:57 PM Age: 52 years old Clinical indication: Chest wall pain; Additional info: Chest pain TECHNIQUE: Imaging protocol: Radiologic exam of the chest. Views: 1 view. COMPARISON: CR XR CHEST 2V [id number] 10/17/2020 9:32 AM FINDINGS: Lungs: Unremarkable. No consolidation. Pleural spaces: Unremarkable. No pleural effusion. No pneumothorax. Heart/Mediastinum: Unremarkable. No cardiomegaly. Bones/joints: Unremarkable. IMPRESSION: No acute findings. Dictated and Authenticated by: Rex Cornell MD. Ordering:PSHELLEY De Anda MD
--- NOTE | 2023-02-12 23:30 | RT.EKG_ITS ---
APPROVED REPORT Exam: Resting ECG Reason for Exam: chest pain Patient Location: E HR:76 bpm ECG Measurements Heart Rate 76 AXIS MT 142 P 6 QRSd 83 QRS 23 QT 399 T 48 QTc 449 Conclusion Sinus rhythm...normal P axis, V-rate 60- 99 sinus rhythm ,normal axis, normal intervals, non ischemic
--- NOTE | 2023-02-12 23:45 | DI.CT_ITS ---
Exam(s) CT THORAX ABD/PEL CTA EXAM: CT THORAX ABD/PEL CTA CLINICAL HISTORY: HTN chest L arm L leg pain; assess for aortic path. TECHNIQUE: Imaging Protocol: Axial CT angiography was performed with multi-slice acquisition and m ulti-planar and/or 3D reconstructions. CONTRAST MATERIAL: Intravenous: Omnipaque 350 contrast volume:100 mL Oral: No COMPARISON: CT CT ABD PELV W CONTRAST* from 09/23/2019 FINDINGS: The examination is limited due to patient motion artifact. CHEST: Tracheobronchial tree: Patent where visualized. Pulmonary parenchyma: No consolidation or dominant measurable mass. Scarring and/or atelectasis is se en in the lung bases. Pulmonary Arteries: No evidence of filling defect to suggest pulmonary emboli. Mediastinum and Nidhi: No dominant adenopathy or fluid collection. Visualized thyroid: Unremarkable. Pleura: No effusion or pneumothorax. Heart: The heart is not dilated. No coronary artery calcifications are seen. No pericardial effusion. There is a normal RV to LV ratio of less than 1. Aorta: Thoracic aorta non-dilated. There is no evidence of dissection. Soft Tissues: Unremarkable. Bones: Within normal limits for the patient's age. ABDOMEN AND PELVIS: Abdomen: Celiac axis/mesenteric arteries: No evidence of occlusion or significant stenosis. Renal Arteries: No evidence of occlusion or significant stenosis. There is a single renal artery per fusing each kidney. Aorta: No evidence of occlusion or significant stenosis. No aneurysm or dissection. Pelvis: Iliac Arteries: No evidence of occlusion or significant stenosis. Common Femoral Arteries: No evidence of occlusion or significant stenosis. ABDOMEN: Liver: Normal density. No measurable mass. Gallbladder and Biliary Tract: Status post cholecystectomy. There is pneumobilia now present. Pancreas: Normal density, no abnormal calcifications or inflammatory process. Spleen: Normal. Adrenals: No masses seen. Kidneys: Normal size, contour and axis. No radiodense stones or obstructive uropathy. No masses seen. Bowel: No obstruction or bowel wall thickening. No evidence of appendicitis. Peritoneal Cavity: No ascites, collection or mesenteric inflammatory response. No free air. Lymph Nodes: Within normal limits. Bones: Within normal limits for the patient's age. There is L5 spondylolysis and grade 1 spondylolis thesis of L5 on S1. Soft Tissues: Unremarkable. PELVIS: Bladder: Symmetric distention, no gross wall thickening. Reproductive Organs: There is a uterine fibroid measuring 6.8 x 6.3 cm. Lymph Nodes: Within normal limits. Bones: Within normal limits for the patient's age. IMPRESSION: 1. Normal CT Angiogram of the chest, abdomen and pelvis. No evidence of abdominal aneurysm or dissec tion. 2. No acute pulmonary process. 3. No acute abdominal pelvic process. 4. Status post cholecystectomy. Pneumobilia is now present. 5. Fibroid uterus. RADIATION DOSE DELIVERED: 1,140.21mGy.cm Total DLP 1,140.21mGy.cm Total DLP DATA REPOSITORY: All CT scans at this facility are submitted to the National Radiology Data Registry (NRDR) Dose Index Registry (DIR) with the [employer] (A[employer]). RADIATION OPTIMIZATION: All CT scans at this facility use at least one of these dose optimization te chniques: automated exposure control; mA and/or kV adjustment per patient size (includes targeted exa ms where dose is matched to clinical indication); or iterative reconstruction.
[2023-02-12] MEDS: LORazepam 2 MG/ML VIAL 1 MG IVP (23:53)
[2023-02-13] VITALS (55 sets, daily range): BP systolic 140–157; BP diastolic 78–94; PULSE 68–76; RESP 14–27; O2SAT 93–98
[2023-02-13] MEDS: Omnipaque 350 MG/ML 100 ML BTL IV (00:19)
[2023-02-13] MEDS: Normal Saline - Diluent 50 ML VIAL IJ (00:20)
--- NOTE | 2023-02-13 00:28 | DI.VRAD_ITS ---
PROCEDURE INFORMATION: Exam: CTA Chest With Contrast CTA Abdomen and Pelvis With Contrast Exam date and time: 02/13/2023 12:11 AM Age: 52 years old Clinical indication: Other: HTN chest L arm L leg pain; Assess for aortic path; Abdominal pain; Localized TECHNIQUE: Imaging protocol: Computed tomographic angiography of the chest with contrast. Computed tomographic angiography of the abdomen and pelvis with contrast. 3D rendering (Not supervised by radiologist): MIP and/or 3D reconstructed images were created by the technologist. Radiation optimization: All CT scans at this facility use at least one of these dose optimization techniques: automated exposure control; mA and/or kV adjustment per patient size (includes targeted exams where dose is matched to clinical indication); or iterative reconstruction. Contrast material: OMNI 350; Contrast volume: 100 ml; Contrast route: INTRAVENOUS (IV); COMPARISON: CR XR CHEST 1V IN DI DEPT 02/12/2023 9:57 PM FINDINGS: VASCULATURE: Pulmonary arteries: Normal. No pulmonary emboli. Aorta: No aortic aneurysm. No aortic dissection. Celiac trunk and mesenteric arteries: No occlusion or significant stenosis. Renal arteries: No occlusion or significant stenosis. Right iliac arteries: No occlusion or significant stenosis. Left iliac arteries: No occlusion or significant stenosis. CHEST: Lungs: Unremarkable. No consolidation. No masses. Pleural spaces: Unremarkable. No pneumothorax. No pleural effusion. Heart: Unremarkable. No cardiomegaly. No pericardial effusion. ABDOMEN AND PELVIS: Liver: No mass. Gallbladder and bile ducts: Status post cholecystectomy. Pancreas: Unremarkable. No mass. No ductal dilation. Spleen: Unremarkable. No splenomegaly. Adrenal glands: Unremarkable. No mass. Kidneys and ureters: Unremarkable. No solid mass. No hydronephrosis. Stomach and bowel: Unremarkable. No obstruction. No mucosal thickening. Appendix: No evidence of appendicitis. Intraperitoneal space: Unremarkable. No free air. No significant fluid collection. Urinary bladder: Unremarkable. No mass. Reproductive: Uterine fibroid suggested. Lymph nodes: Unremarkable. No enlarged lymph nodes. Bones/joints: Unremarkable. No acute fracture. Soft tissues: Unremarkable. IMPRESSION: No acute findings. Dictated and Authenticated by: Rex Cornell MD. Ordering:JENA De Anda MD
[2023-02-13 00:56] LABS: Troponin I < 50 ng/L (<or=60)
== END 2023-02-13 01:36 | disposition home or self-care (01) ==
PROVIDERS: Emergency Provider Emergency Medicine; PCP Nurse Practitioner Family
DX: R07.89 Other chest pain (principal); I10 Essential (primary) hypertension
CPT/HCPCS: 71275; 80053; 93005; 96374; 96375; 99285; 70450; 71045; 74174; 84443; 84484; 85025; 85610; 85730; 93010; J0131; J2060; J3490

== ENCOUNTER 2023-11-19 15:20 | Outpatient (CLI) | payer OTHER, SELFPAY ==
[2023-11-19 15:43] LABS: Abs Immature Grans 0.02 10^3/uL (0.0-0.06); Absolute Basophil Count 0.05 10^3/uL (0.0-0.2); Absolute Lymphocyte Count 2.36 10^3/uL (1.2-3.4); Absolute Monocyte Count 0.39 10^3/uL (0.1-0.8); Absolute Neutrophil Count 3.42 10^3/uL (1.2-6.7); Basophils % 0.8; HCT 40.1 % (36.0-46.0); Immature Grans % 0.3; Lymphocytes % 35.5; MCH 25.2 pg (27.0-33.0); MCHC 32.4 % (32.0-36.0); MCV 78 fL (80-95); MPV 9.2 fL (8.0-11.0); Monocytes % 5.9; Neutrophils % 51.5; Platelet Count 285 10^3/uL (130-400); RBC 5.15 10^6/uL (3.93-5.22); RDW 13.6 % (11.7-14.6); RDW-SD 38.7 fL; Reticulocyte 1.2 % (0.5-2.4); WBC 6.64 10^3/uL (4.4-10.8)
[2023-11-19 16:17] LABS: Iron 47 ug/dL (50-170); Total Iron Binding Capacity 322 ug/dL (250-450); Transferrin Sat 15 % (15-50)
[2023-11-19 16:34] LABS: Calculated LDL 123 mg/dL (<100); Cholesterol 213 mg/dL (<200); Ferritin 131 ng/mL (8-252); HDL Cholesterol 62 mg/dL (40-60); TSH (W/Ref FT4) 0.97 uIU/mL (0.36-3.74); Triglyceride 142 mg/dL (<150)
[2023-11-19 16:44] LABS: BUN 20 mg/dL (7-18); CREATININE 1.1 mg/dL (0.55-1.02); Chloride 105 mmol/L (98-107); Estimated GFR 60.46 (mL/min/1.73m2); Folate 9.3 ng/mL (8.6-20.0); Glucose 89 mg/dL (74-106); Potassium 3.9 mmol/L (3.5-5.1); Sodium 141 mmol/L (136-145); Vitamin B12 487 pg/mL (193-986)
[2023-11-19 16:51] LABS: C-Reactive Protein 0.72 mg/dL (0.0-0.3)
[2023-11-19 22:05] LABS: Hemoglobin A1C 5.7 % (<5.7)
== END 2023-11-19 15:21 | disposition home or self-care (01) ==
PROVIDERS: PCP Nurse Practitioner Family; Visit Provider Surgery
DX: Z13.1 Encounter for screening for diabetes mellitus (principal); Z13.220 Encounter for screening for lipoid disorders; G43.009 Migraine without aura, not intractable, without status migrainosus; I10 Essential (primary) hypertension; I70.1 Atherosclerosis of renal artery; K92.0 Hematemesis; N18.2 Chronic kidney disease, stage 2 (mild)
CPT/HCPCS: 36415; 80048; 80061; 82607; 82728; 82746; 83036; 83540; 83550; 84443; 85025; 85045; 86140

== ENCOUNTER 2023-11-20 22:11 | Outpatient (REF) | payer OTHER, SELFPAY ==
[2023-11-25 12:35] LABS: Calprotectin <50.0 mcg/g
== END 2023-11-20 22:12 | disposition home or self-care (01) ==
LOC: LBN 22:11
PROVIDERS: PCP Nurse Practitioner Family; Visit Provider Surgery
DX: D64.9 Anemia, unspecified (principal); G43.009 Migraine without aura, not intractable, without status migrainosus; I10 Essential (primary) hypertension; I70.1 Atherosclerosis of renal artery; K92.0 Hematemesis; N18.2 Chronic kidney disease, stage 2 (mild)
CPT/HCPCS: 83993

== ENCOUNTER 2024-07-11 14:07 | Outpatient (CLI) | payer OTHER, SELFPAY ==
[2024-07-11 12:42] LABS: Abs Immature Grans 0.01 10^3/uL (0.0-0.06); Absolute Basophil Count 0.05 10^3/uL (0.0-0.2); Absolute Eosinophil Count 0.33 10^3/uL (0.0-0.7); Absolute Lymphocyte Count 1.57 10^3/uL (1.2-3.4); Absolute Monocyte Count 0.34 10^3/uL (0.1-0.8); Absolute Neutrophil Count 3.34 10^3/uL (1.2-6.7); Basophils % 0.9 %; Eosinophils % 5.9 %; HCT 39.9 % (36.0-46.0); HGB 12.6 g/dL (11.2-15.7); Immature Grans % 0.2 %; Lymphocytes % 27.8 %; MCH 24.9 pg (27.0-33.0); MCHC 31.6 % (32.0-36.0); MCV 79 fL (80-95); MPV 9.9 fL (8.0-11.0); Neutrophils % 59.2 %; Platelet Count 285 10^3/uL (130-400); RBC 5.06 10^6/uL (3.93-5.22); RDW 13.9 % (11.7-14.6); RDW-SD 39.8 fL; WBC 5.64 10^3/uL (4.4-10.8)
[2024-07-11 13:25] LABS: COMMENT (LAB VIEW ONLY) 107.63 mg/dL; PROTEIN 17.6 mg/dL; Prot/Crea Ur Ratio 0.16
[2024-07-11 13:41] LABS: Iron 65 ug/dL (50-170); Total Iron Binding Capacity 287 ug/dL (250-450)
[2024-07-11 14:03] LABS: Albumin 3.5 g/dL (3.4-5.0); Anion Gap 7.1 mmol/L (3-11); BUN 11 mg/dL (7-18); CO2 28.9 mmol/L (21.0-32.0); Calcium 9.3 mg/dL (8.5-10.1); Chloride 107 mmol/L (98-107); Estimated GFR 67.78 (mL/min/1.73m2); Ferritin 84 ng/mL (8-252); Glucose 88 mg/dL (74-106); Potassium 3.5 mmol/L (3.5-5.1); Sodium 143 mmol/L (136-145); Vitamin B12 367 pg/mL (193-986)
[2024-07-12 09:32] LABS: Transferrin 223 mg/dL (201-352)
[2024-07-12 10:28] LABS: Lyme Ab w Rflx to Lyme Confirm Negative (Negative)
[2024-07-16 00:58] LABS: Anaplasma phagocytophilum Negative (Negative); B. miyamotoi PCR Negative (Negative); Babesia divergens/MO-1 Negative (Negative); Babesia duncani Negative (Negative); Babesia microti Negative (Negative); Ehrlichia chaffeensis Negative (Negative); Ehrlichia ewingii/canis Negative (Negative); Ehrlichia muris eauclairensis Negative (Negative)
== END 2024-07-11 14:08 | disposition home or self-care (01) ==
LOC: LBO 14:08
PROVIDERS: PCP Nurse Practitioner Family; Visit Provider Internal Medicine Nephrology
DX: D50.9 Iron deficiency anemia, unspecified (principal); W57.XXXA Bitten or stung by nonvenomous insect and other nonvenomous arthropods, initial encounter; I15.0 Renovascular hypertension; N18.2 Chronic kidney disease, stage 2 (mild); R71.8 Other abnormality of red blood cells
CPT/HCPCS: 36415; 80048; 87798; 82040; 82565; 82607; 82728; 83540; 83550; 84156; 84466; 85025; 86618

== ENCOUNTER 2025-06-21 14:10 | Outpatient (REF) | payer OTHER, SELFPAY ==
[2025-06-21 15:00] LABS: HCT 39.5 % (36.0-46.0); HGB 12.2 g/dL (11.2-15.7); MCH 23.6 pg (27.0-33.0); MCHC 30.9 % (32.0-36.0); MCV 77 fL (80-95); MPV 9.9 fL (8.0-11.0); Platelet Count 296 10^3/uL (130-400); RBC 5.16 10^6/uL (3.93-5.22); RDW 14.0 % (11.7-14.6); RDW-SD 38.3 fL; WBC 6.09 10^3/uL (4.4-10.8)
== END 2025-06-21 14:11 | disposition home or self-care (01) ==
LOC: NCHCN 14:10
PROVIDERS: Visit Provider Family Medicine
DX: Z86.2 Personal history of diseases of the blood and blood-forming organs and certain disorders involving the immune mechanism (principal)
CPT/HCPCS: 85027

== ENCOUNTER 2025-08-13 16:14 | Emergency (ER) | payer OTHER, SELFPAY ==
[2025-08-13 16:19] VITALS: BP 163/108; PULSE 85; RESP 18; TEMP 36.6; O2SAT 95
--- NOTE | 2025-08-13 16:30 | DI.RAD_ITS ---
Exam(s) XR HIP RT COMPLETE AP PELVIS EXAM: XR HIP RT COMPLETE AP PELVIS CLINICAL HISTORY: right hip pain. TECHNIQUE: 2D digital imaging was performed. COMPARISON: No exams were available for comparison FINDINGS: 3 views No evidence of pelvic nor hip fracture. Mild degenerative changes in the right hip. No osseous lesions. IMPRESSION: No acute osseous findings. DATA REPOSITORY: RADIATION DOSE DELIVERED:
--- NOTE | 2025-08-13 16:46 | W.ED.GENAD ---
Discharge Plan Disposition Patient Disposition: Home Discharge Details Clinical Impression: Tendinopathy of hip Primary Care Provider: Tianna Rock ED Provider: Vinod Winslow Home Meds and New Rx's Prescriptions: Continued acetaminophen [Tylenol Extra Strength] 500 mg tablet 500 mg PO Q6H PRN prednisone 20 mg tablet 10 - 60 mg PO DAILY Qty: 11 0RF Rx Instructions: take 2 tabs x 3 days , then 1 tab x 3 days, then 1/2 tab x 4 days clonidine 0.2 mg/24 hr patch weekly 0.2 mg transdermal QWEEK Qty: 12 3RF epinephrine [EpiPen 2-Matthew] 0.3 mg/0.3 mL auto-injector 0.3 mg IM ONCE Rx Instructions: as a single dose clopidogrel 75 mg tablet 75 mg PO DAILY rivaroxaban 20 mg tablet 20 mg PO DAILY Rx Instructions: must administer with evening meal losartan 100 mg tablet 100 mg PO DAILY Qty: 90 3RF triamcinolone acetonide 0.5 % cream 1 applic topical BID Qty: 15 3RF carvedilol 6.25 mg tablet 6.25 mg PO BID atorvastatin 40 mg tablet 40 mg PO DAILY Patient Comments: TAKE 1 TABLET BY MOUTH EVERY DAY amlodipine 5 mg tablet 5 mg PO DAILY Patient Comments: TAKE 1 TABLET BY MOUTH EVERY DAY spironolactone 25 mg tablet 25 mg PO DAILY Patient Comments: TAKE 1 TABLET BY MOUTH EVERY DAY valacyclovir 1 gram tablet 500 mg PO PRN Patient Comments: TAKE 2 TABLETS BY MOUTH SINGLE DOSE AT ONSET OF COLD SORE Discharge Instructions Additional Instructions: I suspect your pain is likely secondary to a tendinopathy of your right hip as you do have a tender insertion into the proximal femur. As we discussed I would return for emergent evaluation if you develop fever, overlying skin changes, or severe pain. Please use the cane that you have at your house as well as take scheduled Tylenol to help with your pain over the next several days. Please follow-up with your primary care provider regarding your visit to the emergency department today. Be sure to discuss results of all test performed here today to include radiology, and laboratory testing as well as results for any pending cultures. Should your symptoms worsen, or if you develop new concerning symptoms, please return immediately emergency department for further evaluation. HPI General Date/Time Provider Initiated Documentation: 08/13/25 16:29. HPI Narrative: MDM/Narrative: Initial Assessment: 54-year-old female with right hip pain, likely tendinopathy. No abdominal involvement. Differential Diagnosis: - Soft tissue injury: Likely tendinopathy. Plan: X-ray of right hip, Tylenol for pain. - Ischemic necrosis Plan: X-ray to assess blood flow and joint condition. - AAA: unliekly, no abdominal tenderness, and reporducible thigh tenderness. ED Course: - X-ray of right hip ordered. - Tylenol administered for pain. Final Assessment: X-ray ordered and Tylenol administered for right hip pain. Possible soft tissue injury or hip joint condition considered. Clinical Impression: - Right hip pain/tendinopathy - Chronic kidney disease - Hypertension Disposition: Discharge: Home. Return precautions if pain worsens or persists. 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 This document was created with assistance from [employer] Lead Consult[employer]. The patient consented to its use. HPI: The patient is a 54-year-old female with a history of chronic kidney disease and hypertension, presenting with right hip pain. The patient reports the onset of sudden leg pain three days ago while standing up from her desk at work, initially perceived as a muscle cramp. The pain intensified during her commute home, resulting in difficulty exiting her vehicle. The following morning, she experienced increased pain upon weight-bearing on the affected leg, although it was manageable enough to drive to work. She describes difficulty standing after prolonged sitting. The pain is localized to the groin area and occasionally causes the leg to lock up. Ambulation exacerbates the pain, whereas sitting does not induce discomfort. She denies any recent physical activity or trauma. There are no visible dermatological changes over the affected area. She has not taken acetaminophen today. She has an appointment scheduled for Thursday and 08/17/2025. 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 She was hospitalized for four days and treated with heparin. She reports residual back pain, which was part of the rejection process, but notes improvement. Additionally, the patient has a history of hypertension. ROS: Negative besides as mentioned above Exam: Vital signs: Reviewed. General Appearance: Alert and oriented. No acute distress. HEENT: NCAT, EOMI, not icteric. External ears normal. No rhinorrhea. Moist mucous membranes. Neck: Supple, full range of motion, no observable masses, No meningeal sign. Respiratory: No Respiratory distress. No tachypnea. Cardiovascular: RRR, no edema. Gastrointestinal: Soft, nondistended, No rebound tenderness. Back: No midline tenderness to palpation or palpable step-offs of the C/T/L spine. Musculoskeletal: Pain with palpation of the insert of the hip flexor into the pelvis. No pain with passive hip movement, resisted knee flexion/extension, or resisted hip rotation. No deformities or swelling. Skin: No changes in skin overlying hip. Neurological: Normal Gait, Grossly intact. Psychiatric: Appropriate for situation. Radiology: Exam(s) XR HIP RT COMPLETE AP PELVIS EXAM: XR HIP RT COMPLETE AP PELVIS CLINICAL HISTORY: right hip pain. TECHNIQUE: 2D digital imaging was performed. COMPARISON: No exams were available for comparison FINDINGS: 3 views No evidence of pelvic nor hip fracture. Mild degenerative changes in the right hip. No osseous lesions. IMPRESSION: No acute osseous findings. DATA REPOSITORY: RADIATION DOSE DELIVERED: Related Data Home Medications ?Medication ?Instructions ?Recorded ?Confirmed epinephrine 0.3 mg/0.3 mL 0.3 mg IM ONCE 05/13/21 08/13/25 injection, auto-injector (EpiPen 2-Matthew) acetaminophen 500 mg tablet 500 mg PO Q6H PRN 08/07/21 08/13/25 (Tylenol Extra Strength) clopidogrel 75 mg tablet 75 mg PO DAILY 06/09/23 08/13/25 rivaroxaban 20 mg tablet 20 mg PO DAILY 06/09/23 08/13/25 clonidine 0.2 mg/24 hr weekly 0.2 mg transdermal QWEEK #12 ea 04/20/24 08/13/25 transdermal patch prednisone 20 mg tablet 10 - 60 mg (0.5 - 3 x 20 mg) PO 04/20/24 08/13/25 DAILY #11 tabs losartan 100 mg tablet 100 mg PO DAILY #90 tabs 05/04/24 08/13/25 triamcinolone acetonide 0.5 % 1 applic topical BID #15 grams 09/12/24 08/13/25 topical cream amlodipine 5 mg tablet 5 mg PO DAILY 08/13/25 08/13/25 atorvastatin 40 mg tablet 40 mg PO DAILY 08/13/25 08/13/25 carvedilol 6.25 mg tablet 6.25 mg PO BID 08/13/25 08/13/25 spironolactone 25 mg tablet 25 mg PO DAILY 08/13/25 08/13/25 valacyclovir 1 gram tablet 500 mg PO PRN 08/13/25 08/13/25 Previous Rx's ?Medication ?Instructions ?Recorded clonidine 0.2 mg/24 hr weekly 0.2 mg transdermal QWEEK #12 ea 04/20/24 transdermal patch prednisone 20 mg tablet 10 - 60 mg (0.5 - 3 x 20 mg) PO 04/20/24 DAILY #11 tabs losartan 100 mg tablet 100 mg PO DAILY #90 tabs 05/04/24 triamcinolone acetonide 0.5 % 1 applic topical BID #15 grams 09/12/24 topical cream Allergies Allergy/AdvReac Type Severity Reaction Status Date / Time cephalexin monohydrate (From Allergy Severe Anaphylaxsi Verified 08/13/25 16:25 Keflex) s Latex, Natural Rubber Allergy Skin Rash Verified 08/13/25 16:25 hydromorphone (From Dilaudid) AdvReac Unknown Nausea Verified 08/13/25 16:25 meperidine HCl (From Demerol) AdvReac vomits Verified 08/13/25 16:25 morphine AdvReac vomits Verified 08/13/25 16:25 Penicillins AdvReac Nausea Verified 08/13/25 16:25 General Stated Complaint: Orthopedic MAUDE: 3 Course Vital Signs Vital signs: Vital Signs Temperature 36.6 C 08/13/25 16:19 Pulse 85 08/13/25 16:19 Respiratory Rate 18 08/13/25 16:19 Blood Pressure 163/108 H 08/13/25 16:19 Pulse Oximetry 95 08/13/25 16:19 Temperature 36.6 C 08/13/25 16:19 Temperature Source Oral 08/13/25 16:19 Pulse 85 08/13/25 16:19 Respiratory Rate 18 08/13/25 16:19 Blood Pressure 163/108 H 08/13/25 16:19 Blood Pressure Position Sitting 08/13/25 16:19 Pulse Oximetry 95 08/13/25 16:19 Oxygen Delivery Method Room Air 08/13/25 16:19 Oxygen Flow Rate 0 08/13/25 16:19 Pain Level 8 08/13/25 16:19 PFSH All Active Problems (Updated 08/13/25 @ 17:48 by Vinod Winslow MD) Tendinopathy of hip (Acute) Head injury (Acute) Anemia (Chronic) Stage 2 chronic kidney disease (Acute) Vomiting blood (Acute) Essential hypertension (Acute) Hot flashes due to menopause (Acute) Left knee pain (Acute) Otitis media due to severe acute respiratory syndrome coronavirus 2 (SARS-CoV-2) (Acute) Migraine headache without aura (Acute) Kidney mass (Acute ~09/12/20) Atopic dermatitis (Acute ~11/13/20) Headache (Acute) Medical History 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) Renal artery stenosis Benign neoplasm of right ovary Ovarian mass (~09/12/20) Acute pancreatitis (~09/12/20) Mixed incontinence (~11/09/18) Surgical History H/O partial nephrectomy H/O oophorectomy H/O cystoscopy History of suburethral sling procedure [place] S/P excision of lipoma (~11/27/20) RT axillary lipoma- first removal 5 years prior History of bilateral tubal ligation (~1991) Hx laparoscopic cholecystectomy (~1993) History of reversal of tubal ligation (~2002) History of appendectomy (~2007) H/O LEEP (~2007) 2010 History of exploratory laparotomy (~09/2015) RSO Status post cryoablation (~2018) Family History Daughter No problems noted. Daughter No problems noted. Maternal Grandfather , 70's Stroke Hyperlipidemia Paternal Grandfather , 70's Cancer Heart disease Hyperlipidemia Stroke Maternal Grandmother , 40's Breast cancer Paternal Grandmother , 70's Cancer liver Cancer Hypertension Stroke Social History Smoking/Tobacco Use Status: Never Tobacco: How many years used: 0 Second Hand Exposure: No Smoking risk assessment performed?: Yes Alcohol Intake: current Alcohol Intake frequency: holidays/special occasions only Alcohol type: wine Drug use: Never Substance use type: does not use Caregiver/Support person: No Household members: children Housing: apartment Communication Needs: None Do you need help understanding health information?: Never Pets and animals: Yes Pets and animals: dog(s) and fish Sexually active: Yes Do you think of yourself as: straight/heterosexual Current gender identity: female What is your relationship status?: How often do you talk on the phone with friends or family?: once per week How often do you get together with friends or relatives?: once per week How often do you attend christian or jew services?: decline to answer Do you belong to any clubs or organized social groups?: yes Panel score (0-1 are the most socially isolated patients): 1 What type of physical activity do you participate in: none Special anabella needs: No Seatbelt use: always Helmet use: Yes Helmet use: always Drive intox or ride w/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
[2025-08-13] MEDS: Acetaminophen 500 MG TAB 1000 MG PO (16:53)
== END 2025-08-13 18:24 | disposition home or self-care (01) ==
PROVIDERS: Emergency Provider General Practice; PCP Family Medicine
DX: M67.951 Unspecified disorder of synovium and tendon, right thigh (principal)
CPT/HCPCS: 99283 ×2; 73502